=== PATIENT | male | born 1935 | race Caucasian/White ===

== ENCOUNTER → 2017-01-15 | Outpatient (CLI) | payer MEDICARE, MEDICAID ==
[~2017-01-15] MED LIST: /ESOM40CA PO; /WARF25TA PO; /WARF5TA PO; ASPI1TAB PO; ATEN25TA OR; BABY81CH OR; CALCIUM/VITAMIN D PO; CANASA PR; CILO100T PO; CILOSTAZOL PO; COZA50TA18 PO; ENOX80SY SC; FISH1000 OR; FURO40TA2 PO; INSULIN PUMP SC; LEVO50TA2 PO; LYRI75CA PO; NOVOINJ12 SC; NOVOLOG SC; PRAV80TA PO; TEGR200T OR; TRAM50TA2 PO; TYLE325T5 PO; ULTR50TA PO; VITAMIN D PO
== END ==
LOC: M WUC 13:23
PROVIDERS: ATTEND Urology
DX: C61 Malignant neoplasm of prostate (principal)

== ENCOUNTER 2017-01-24 08:06 | Observation (INO) | payer MEDICARE, MEDICAID ==
[~2017-01-24] VITALS: Ht 180.3 cm; Wt 78.0 kg
--- NOTE | 2017-01-24 09:11 | REP ---
Clinical: Shortness of breath . Comparison: 08/07/2016 . Technique: PA and lateral. Findings: The mediastinum and cardiac silhouette are normal/ stable. Evidence for prior sternotomy and CABG. The lung davidson are clear and without acute consolidation, effusion, or pneumothorax. The skeletal structures are intact and normal. Impression: 1. No acute cardiopulmonary process. Signed by Jarett Mejía MD 01/24/2017 09:02 A
[2017-01-24 09:16] LABS: BASO % 0.4 % (0.0-1.0); EOS # 0.3 K/mm3 (0.0-0.50); EOS % 3.3 % (0.0-3.0); LARGE UNSTAINED CELL # 0.2 K/mm3 (0.0-0.4); LARGE UNSTAINED CELL % 2.9 % (0.0-4.0); LYMPH # 0.7 K/mm3 (1.5-4.5); LYMPH % 8.3 % (24.0-44.0); MEAN CORPUSCULAR HEMOGLOBIN 32.2 pg (27.0-33.0); MEAN CORPUSCULAR HGB CONC 33.3 g/dl (32.0-36.5); MEAN CORPUSCULAR VOLUME 96.6 fl (80.0-96.0); MONO # 0.7 K/mm3 (0.0-0.8); MONO % 8.2 % (0.0-5.0); NEUTROPHILS % 76.9 % (36.0-66.0); PLATELET COUNT, AUTOMATED 166 k/mm3 (150-450); RED CELL DISTRIBUTION WIDTH 12.6 % (11.5-14.5); WHITE BLOOD COUNT 7.8 K/mm3 (4.0-10.0)
[2017-01-24 09:38] LABS: ALBUMIN 2.9 GM/DL (3.2-5.2); ALBUMIN/GLOBULIN RATIO 0.78 (1.00-1.93); ALKALINE PHOSPHATASE 101 U/L (45-117); ALT/SGPT 17 U/L (12-78); ANION GAP 7 MEQ/L (8-16); AST/SGOT 13 U/L (15-37); BILIRUBIN,DIRECT 0.1 MG/DL (0.0-0.2); BILIRUBIN,TOTAL 0.5 MG/DL (0.2-1.0); BLOOD UREA NITROGEN 29 MG/DL (7-18); CARBON DIOXIDE LEVEL 31 MEQ/L (21-32); CHLORIDE LEVEL 95 MEQ/L (98-107); CREATININE FOR GFR 1.56 MG/DL (0.70-1.30); GLOMERULAR FILTRATION RATE 45.6 (>35); GLUCOSE, FASTING 223 MG/DL (83-110); SODIUM LEVEL 133 MEQ/L (136-145); TOTAL PROTEIN 6.6 GM/DL (6.4-8.2)
[2017-01-24] MEDS ORDERED: ISOVUE-370 76% 100ML VIAL (Q9967) As Ordered ONE (09:54)
--- NOTE | 2017-01-24 10:27 | REP ---
Clinical: Acute abdominal pain. Technique: Axial contrast enhanced images from the lung bases to the pubic symphysis using 100 ml Isovue 370 intravenous contrast material with coronal and sagittal re-formations. Comparison: 01/12/2012. Findings: Lung bases demonstrate chronic interstitial changes and mild bronchiectasis. Visualized heart and pericardium normal. Liver demonstrates stable 2 cm hypodensity at the dome. Spleen, pancreas, gallbladder, bilateral adrenal glands and kidneys are normal. The enteric system demonstrates moderate fecal stasis and predominately sigmoid diverticulosis without obstruction or acute inflammatory process. Normal terminal ileum and appendix are identified in the right lower quadrant. Pelvis demonstrates normal bladder and age appropriate prostate/seminal vesicles. Small fat containing periumbilical hernia noted. Atherosclerotic changes to the vasculature noted without aneurysm. No ascites. No free air. No adenopathy. Musculoskeletal structures demonstrate degenerative changes. Impression: Chronic stable changes. No acute abdominopelvic pathology noted. Signed by Jarett Mejía MD 01/24/2017 10:19 A
[2017-01-24] MEDS ORDERED: ACETAMINOPHEN TAB 650MG DOSE (2X325MG) PO PRN (11:15)
[2017-01-24] MEDS ORDERED: LOSA25TA8 PO (12:08)
[2017-01-24] MEDS ORDERED: TRAM50TA2 PO (12:08)
[2017-01-24] MEDS ORDERED: LEVO50TA5 PO (12:08)
[2017-01-24] MEDS ORDERED: FURO40TA2 PO (12:08)
[2017-01-24] MEDS ORDERED: ASPI325T28 PO (12:08)
[2017-01-24] MEDS ORDERED: PRAV80TA2 PO (12:08)
[2017-01-24] MEDS ORDERED: CARB20TAXR PO (12:08)
[2017-01-24] MEDS ORDERED: CALC600T10 PO (12:08)
[2017-01-24] MEDS ORDERED: NITR4TASL SL (12:08)
[2017-01-24] MEDS ORDERED: INSUH10VL SC (12:08)
[2017-01-24] MEDS ORDERED: VITA-121 PO (12:08)
[2017-01-24] MEDS ORDERED: SUCR1TAB56 PO (12:08)
[2017-01-24] MEDS ORDERED: CILO100T PO (12:08)
[2017-01-24] MEDS ORDERED: NEXI40CA PO (12:08)
--- NOTE | 2017-01-24 12:22 | ECGEPIP ---
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
--- NOTE | 2017-01-24 12:34 | EDDOCDS ---
Physician Documentation [facility] Name: Matti Dangelo Age: 81 yrs Sex: Male : 1935 Arrival Date: 01/24/2017 Time: 08:06 Bed 10 Private MD: Matt Patel MD Disposition: 01/24/17 10:59 Hospitalization ordered by David Moon for Inpatient Admission. Preliminary diagnosis are Hypotension, Dehydration. - Bed requested for 4 [place]. - Status is Inpatient Admission. jjr - Condition is Stable. - Problem is new. - Symptoms are unchanged. Historical: - Allergies: no known allergies; - Home Meds: 1. aspirin 325 mg Oral tab 1 tab once daily 2. Calcium 600 600 mg (1,500 mg) oral tab daily 3. carbamazepine 200 mg Oral tab 1 tab daily 4. cilostazol 100 mg oral tab 1 tab daily 5. Lasix 40 mg Oral tab 1 tab once daily 6. Synthroid 50 mcg Oral tab 1 tab once daily 7. losartan 50 mg oral tab 1 tab once daily 8. pravastatin 80 mg oral tab 1 tab once daily 9. Insulin pump daily 10. Nexium 40 mg Oral cpDR 1 cap once daily 11. sucralfate 1 gram Oral tab 4 times per day 12. tramadol 50 mg Oral tab as needed 13. Nitrostat 0.4 mg SL subl 1 tab every 5 minutes 14. Vitamin D3 1,000 unit oral tab daily - PMHx: BPH; Diabetes - IDDM: controlled; Hypercholesterolemia; NV; neurpathy; - PSHx: CABG; Cataract Surgery- Bilateral; Thyroid Surgery; shoulder surgery, left; Bypass; left knee; - Social history: Smoking status: Patient states former smoker of tobacco. No barriers to communication noted, The patient speaks fluent Argentine, Speaks appropriately for age. - : The pt / caregiver states he / she is not on anticoagulants. Home medication list is obtained from the patient. - Exposure Risk Screening:: None identified. Vital Signs: 01/24 08:21 BP 93 / 51; Pulse 84; Resp 16; Temp 96.9(O); Pulse Ox 99% on R/A; Weight 78.02 kg / 172 mlb1 lbs (R); Height 5 ft. 11 in. (180.34 cm) (R); Pain 0/10; 09:15 BP 105 / 56 RA Supine (auto/reg); Pulse 76; jjr 09:15 BP 104 / 57 RA Sitting (auto/reg); Pulse 78; jjr 09:16 BP 97 / 53 RA Standing (auto/reg); Pulse 87; jjr 09:27 BP 118 / 58 (auto/); jjr 09:27 Pulse 74 MON; Pulse Ox 91% ; jjr 09:42 BP 110 / 54 (auto/); jjr 09:42 Pulse 74 MON; Pulse Ox 95% ; jjr 09:57 BP 105 / 54 (auto/); jjr 09:57 Pulse 72 MON; Resp 18; Pulse Ox 96% on R/A; jjr 10:27 BP 108 / 56 (auto/); jjr 10:27 Pulse 74 MON; Pulse Ox 92% ; jjr 11:08 BP 126 / 69 (auto/); jjr 11:08 Pulse 74 MON; Pulse Ox 95% ; jjr 11:27 BP 112 / 63 (auto/); jjr 11:27 Pulse 76 MON; Pulse Ox 96% ; jjr 11:57 BP 150 / 73 (auto/); jjr 11:57 BP 150 / 73; Pulse 74 MON; Resp 18; Temp 98.5(TE); Pulse Ox 98% ; Pain 0/10; jjr 12:32 BP 109 / 55; Pulse 79; Resp 18; Temp 98(O); Pulse Ox 100% on R/A; Pain 0/10; jjr 08:21 Body Mass Index 23.99 (78.02 kg, 180.34 cm) mlb1 MDM: 08:38 Sql Dba/Pulse Ox/q 30 min VS ordered. br1 08:38 IV Saline Lock ordered. br1 08:38 Rhythm Strip to chart ordered. br1 08:38 Undress patient appropriately for examination ordered. br1 08:38 NS 0.9% 500 ml IV at bolus once ordered. br1 08:39 Basic Metabolic Profile Ordered. EDMS 08:39 CBC with Diff Ordered. EDMS 08:39 Cardiac Injury Profile Ordered. EDMS 08:39 Troponin Ordered. EDMS 08:39 Orthostatic VS ordered. br1 08:39 Chest, 2 View (pa\E\lat) Ordered. EDMS 08:39 ECG WITH READING ER PHYS+CARDIAG ordered. EDMS 08:44 LIPASE Ordered. EDMS 08:44 LIVER PROFILE Ordered. EDMS 08:44 CARBAMAZEPINE (TEGRETOL) LEVEL Ordered. EDMS 09:32 CBC with Diff Reviewed. br1 09:32 Chest, 2 View (pa\E\lat) Reviewed. br1 09:37 Financial registration complete. mm15 09:39 [facility] [place] was scanned into yoone and attached to record. mm15 09:45 Basic Metabolic Profile Reviewed. br1 09:45 LIPASE Reviewed. br1 09:45 LIVER PROFILE Reviewed. br1 09:45 Cardiac Injury Profile Reviewed. br1 09:45 Troponin Reviewed. br1 09:45 CARBAMAZEPINE (TEGRETOL) LEVEL Reviewed. br1 09:47 CT ABD & PELVIS: IV Contrast Only Ordered. EDMS 10:58 NS 0.9% 1000 ml IV at 150 mL/hr continuous ordered. br1 10:58 BED REQUEST+ADM ordered. EDMS 11:27 CONSISTENT CARBOHYDRATES ordered. EDMS 11:27 NO ADDED SALT DIET ordered. EDMS 11:29 PHYSICAL THERAPY EVAL & TREAT ordered. EDMS 11:29 Admission / Observation Status ordered. EDMS Administered Medications: 09:22 Drug: NS 0.9% 500 ml [sodium chloride 0.9 % intravenous solution] Route: IV; Rate: jjr bolus; Site: left antecubital; 10:00 Follow up: IV Status: Completed infusion; IV Intake: 500ml jjr 11:15 Drug: NS 0.9% 1000 ml [sodium chloride 0.9 % intravenous solution] {Note: rate change jjr per admitting provider.} Route: IV; Rate: 75 mL/hr; Site: left antecubital; Signatures: Dispatcher [employer] EDMS Janeth Solorzano, Hospital Personnel Director Unit deg Srinivasa Siu RN RN mlb1 Gold Quesada MD MD br1 Rebecca Bright RN RN jjr Bailey Bedolla mm15 The chart was reviewed and I authenticate all verbal orders and agree with the evaluation and treatment provided.Corrections: (The following items were deleted from the chart) 08:44 08:40 CARBAMAZEPINE (TEGRETOL) LEVEL+LAB ordered. EDMS EDMS 08:44 08:40 LIVER PROFILE+LAB ordered. EDMS EDMS 08:44 08:40 LIPASE+LAB ordered. EDMS EDMS Attachments: 09:39 [facility] [place] mm15 MTDD
--- NOTE | 2017-01-24 12:34 | EDDOCDS ---
Nurse's Notes [facility] Name: Matti Dangelo Age: 81 yrs Sex: Male : 1935 Arrival Date: 01/24/2017 Time: 08:06 Bed 10 Private MD: Matt Patel MD Diagnosis: Hypotension;Dehydration Presentation: 01/24 08:13 Presenting complaint: Patient states: Generalized weakness not eating with nausea mlb1 intermittent abdominal pain began a week ago. The last date and time the patient was known to be well was was at 08:14 on January 24, 2017. No acute neurological deficit is noted. Adult Sepsis Screening: The patient does not have new or worsening altered mentation. Patient's respiratory rate is less than 22. Systolic blood pressure is greater than 100. Patient has a qSOFA score of 0- Negative Sepsis Screen. Suicide/Homicide risk assessment- the patient denies having any suicidal and/or homicidal ideations and does not present with any other emotional, behavioral or mental health complaints. Status: Patient is not a director social service or dependent. Transition of care: patient was not received from another setting of care. 08:13 Acuity: JOSH Level 3 mlb1 08:13 Method Of Arrival: Walkin/Carried/Asstd mlb1 Triage Assessment: 08:21 The onset of the patients symptoms was more than three hours ago. General: Appears in mlb1 no apparent distress, Behavior is appropriate for age, cooperative. General: Reports feeling ill for > 3 days, fatigue for >3 days. Pain: Denies pain. Neurological: Level of Consciousness is awake, alert. GI: Reports intolerance of food. Historical: - Allergies: no known allergies; - Home Meds: 1. aspirin 325 mg Oral tab 1 tab once daily 2. Calcium 600 600 mg (1,500 mg) oral tab daily 3. carbamazepine 200 mg Oral tab 1 tab daily 4. cilostazol 100 mg oral tab 1 tab daily 5. Lasix 40 mg Oral tab 1 tab once daily 6. Synthroid 50 mcg Oral tab 1 tab once daily 7. losartan 50 mg oral tab 1 tab once daily 8. pravastatin 80 mg oral tab 1 tab once daily 9. Insulin pump daily 10. Nexium 40 mg Oral cpDR 1 cap once daily 11. sucralfate 1 gram Oral tab 4 times per day 12. tramadol 50 mg Oral tab as needed 13. Nitrostat 0.4 mg SL subl 1 tab every 5 minutes 14. Vitamin D3 1,000 unit oral tab daily - PMHx: BPH; Diabetes - IDDM: controlled; Hypercholesterolemia; SD; neurpathy; - PSHx: CABG; Cataract Surgery- Bilateral; Thyroid Surgery; shoulder surgery, left; Bypass; left knee; - Social history: Smoking status: Patient states former smoker of tobacco. No barriers to communication noted, The patient speaks fluent Korean, Speaks appropriately for age. - : The pt / caregiver states he / she is not on anticoagulants. Home medication list is obtained from the patient. - Exposure Risk Screening:: None identified. Screenin:17 Fall Risk. jjr 09:17 Screening information is obtained from the patient. Fall risk: At risk due to age, The jjr following interventions are performed due to a positive Fall Risk Screen: added to special handling. Assistance ADL's: requires no assistance with activities of daily living. Abuse/DV Screen: The patient / caregiver reports he/she is: not in a situation that causes fear, pain or injury. Nutritional screening: No deficits noted. home support is adequate. 10:46 Advance Directives: Currently, there is a health care proxy, Cha Dangelo . There jjr is no active DNR order. Assessment: 09:16 General: Appears in no apparent distress, well nourished, well groomed, Behavior is jjr appropriate for age. General: Reports fatigue for >3 days. Pain: Denies pain. Neurological: No deficits noted. Cardiovascular: Rhythm is sinus rhythm. Respiratory: Airway is patent Respiratory effort is even, unlabored, Respiratory pattern is regular. GI: Reports nausea, normal bowel habits, decreased appetite. Derm: Skin is pink, warm & dry. 10:24 General: Appears in no apparent distress, Behavior is appropriate for age. jjr Neurological: No deficits noted. Cardiovascular: Rhythm is sinus rhythm. Respiratory: Airway is patent Respiratory effort is even, unlabored, Respiratory pattern is regular. Derm: Skin is pink, warm & dry. 11:23 General: Appears in no apparent distress, Behavior is appropriate for age, provided jjr coffee and water per request, admitting provider to bedside. Cardiovascular: Rhythm is sinus rhythm. Respiratory: No deficits noted. Derm: No deficits noted. 12:33 General: Appears in no apparent distress, tolerated lunch tray. Pain: Denies pain. jjr Neurological: No deficits noted. Respiratory: No deficits noted. Derm: No deficits noted. Vital Signs: 08:21 BP 93 / 51; Pulse 84; Resp 16; Temp 96.9(O); Pulse Ox 99% on R/A; Weight 78.02 kg (R); mlb1 Height 5 ft. 11 in. (180.34 cm) (R); Pain 0/10; 09:15 BP 105 / 56 RA Supine (auto/reg); Pulse 76; jjr 09:15 BP 104 / 57 RA Sitting (auto/reg); Pulse 78; jjr 09:16 BP 97 / 53 RA Standing (auto/reg); Pulse 87; jjr 09:27 BP 118 / 58 (auto/); jjr 09:27 Pulse 74 MON; Pulse Ox 91% ; jjr 09:42 BP 110 / 54 (auto/); jjr 09:42 Pulse 74 MON; Pulse Ox 95% ; jjr 09:57 BP 105 / 54 (auto/); jjr 09:57 Pulse 72 MON; Resp 18; Pulse Ox 96% on R/A; jjr 10:27 BP 108 / 56 (auto/); jjr 10:27 Pulse 74 MON; Pulse Ox 92% ; jjr 11:08 BP 126 / 69 (auto/); jjr 11:08 Pulse 74 MON; Pulse Ox 95% ; jjr 11:27 BP 112 / 63 (auto/); jjr 11:27 Pulse 76 MON; Pulse Ox 96% ; jjr 11:57 BP 150 / 73 (auto/); jjr 11:57 BP 150 / 73; Pulse 74 MON; Resp 18; Temp 98.5(TE); Pulse Ox 98% ; Pain 0/10; jjr 12:32 BP 109 / 55; Pulse 79; Resp 18; Temp 98(O); Pulse Ox 100% on R/A; Pain 0/10; jjr 08:21 Body Mass Index 23.99 (78.02 kg, 180.34 cm) mlb1 ED Course: 08:07 Patient visited by [place] Reg. lg 08:07 Patient moved to Waiting lg 08:08 Mtat Patel is Private Physician. lg 08:13 Patient visited by Srinivasa Siu, RN. mlb1 08:15 Triage Initiated mlb1 08:22 Patient visited by Srinivasa Siu, ROHINI. mlb1 08:22 Patient moved to 10 mlb1 08:28 Hamilton Quesada MD is Attending Physician. br1 08:37 Patient visited by Hamilton Quesada MD. br1 08:48 Patient visited by Matt Koenig PCA. jrd 08:48 EKG done. (by ED staff). Reviewed by Hamilton Quesada MD. jrd 09:16 The patient / caregiver is instructed regarding the plan of care and ED course. Cardiac jjr monitor on. Pulse ox on. NIBP on. 09:16 Inserted saline lock: 20 gauge in left antecubital area and blood collected. Labs jjr drawn. (by ED staff). Sent per order to lab. 09:17 Patient visited by Rebecca Bright RN. jjr 09:20 Chest, 2 View (pa\E\lat) Returned. EDMS 09:39 [facility] Payment Agreement was scanned into [email or web address] and attached to record. mm15 10:25 Patient visited by Rebecca Bright RN. jjr 10:33 CT ABD & PELVIS: IV Contrast Only Returned. EDMS 10:59 David Moon MD is Hospitalizing Provider. br1 11:24 Patient visited by Rebecca Bright RN. jjr 12:25 EKG-ADULT Returned. EDMS 12:33 No procedures done that require assistance. jjr Administered Medications: 09:22 Drug: NS 0.9% 500 ml [sodium chloride 0.9 % intravenous solution] Route: IV; Rate: jjr bolus; Site: left antecubital; 10:00 Follow up: IV Status: Completed infusion; IV Intake: 500ml jjr 11:15 Drug: NS 0.9% 1000 ml [sodium chloride 0.9 % intravenous solution] {Note: rate change jjr per admitting provider.} Route: IV; Rate: 75 mL/hr; Site: left antecubital; Intake: 10:00 IV: 500.00ml; Total: 500.00ml. jjr Order Results: Lab Order: Basic Metabolic Profile; SPEC'M 01/24/17 09:09 Test: GLUCOSE, FASTING; Value: 223; Range: 83-110; Abnormal: Above high normal; Units: MG/DL; Status: F Test: BLOOD UREA NITROGEN; Value: 29; Range: 7-18; Abnormal: Above high normal; Units: MG/DL; Status: F Test: CREATININE FOR GFR; Value: 1.56; Range: 0.70-1.30; Abnormal: Above high normal; Units: MG/DL; Status: F Test: GLOMERULAR FILTRATION RATE; Value: 45.6; Range: >35; Status: F Test: SODIUM LEVEL; Value: 133; Range: 136-145; Abnormal: Below low normal; Units: MEQ/L; Status: F Test: POTASSIUM SERUM; Value: 4.0; Range: 3.5-5.1; Units: MEQ/L; Status: F Test: CHLORIDE LEVEL; Value: 95; Range: 98-107; Abnormal: Below low normal; Units: MEQ/L; Status: F Test: CARBON DIOXIDE LEVEL; Value: 31; Range: 21-32; Units: MEQ/L; Status: F Test: ANION GAP; Value: 7; Range: 8-16; Abnormal: Below low normal; Units: MEQ/L; Status: F Test: CALCIUM LEVEL; Value: 8.0; Range: 8.8-10.2; Abnormal: Below low normal; Units: MG/DL; Status: F Test Note: ; Units are mL/min/1.73 m2 Chronic Kidney Disease Staging per NKF: Stage I & II GFR >=60 Normal to Mildly Decreased Stage III GFR 30-59 Moderately Decreased Stage IV GFR 15-29 Severely Decreased Stage V GFR <15 Very Little GFR Left ESRD GFR <15 on BUDGET ENGINEER Lab Order: CBC with Diff; 01/24/17 09:09 Test: WHITE BLOOD COUNT; Value: 7.8; Range: 4.0-10.0; Units: K/mm3; Status: F Test: RED BLOOD COUNT; Value: 3.60; Range: 4.30-6.10; Abnormal: Below low normal; Units: M/mm3; Status: F Test: HEMOGLOBIN; Value: 11.6; Range: 14.0-18.0; Abnormal: Below low normal; Units: g/dl; Status: F Test: HEMATOCRIT; Value: 34.7; Range: 42.0-52.0; Abnormal: Below low normal; Units: %; Status: F Test: MEAN CORPUSCULAR VOLUME; Value: 96.6; Range: 80.0-96.0; Abnormal: Above high normal; Units: fl; Status: F Test: MEAN CORPUSCULAR HEMOGLOBIN; Value: 32.2; Range: 27.0-33.0; Units: pg; Status: F Test: MEAN CORPUSCULAR HGB CONC; Value: 33.3; Range: 32.0-36.5; Units: g/dl; Status: F Test: RED CELL DISTRIBUTION WIDTH; Value: 12.6; Range: 11.5-14.5; Units: %; Status: F Test: PLATELET COUNT, AUTOMATED; Value: 166; Range: 150-450; Units: k/mm3; Status: F Test: NEUTROPHILS %; Value: 76.9; Range: 36.0-66.0; Abnormal: Above high normal; Units: %; Status: F Test: LYMPH %; Value: 8.3; Range: 24.0-44.0; Abnormal: Below low normal; Units: %; Status: F Test: MONO %; Value: 8.2; Range: 0.0-5.0; Abnormal: Above high normal; Units: %; Status: F Test: EOS %; Value: 3.3; Range: 0.0-3.0; Abnormal: Above high normal; Units: %; Status: F Test: BASO %; Value: 0.4; Range: 0.0-1.0; Units: %; Status: F Test: LARGE UNSTAINED CELL %; Value: 2.9; Range: 0.0-4.0; Units: %; Status: F Test: NEUTROPHILS #; Value: 6.0; Range: 1.8-7.7; Units: K/mm3; Status: F Test: LYMPH #; Value: 0.7; Range: 1.5-4.5; Abnormal: Below low normal; Units: K/mm3; Status: F Test: MONO #; Value: 0.7; Range: 0.0-0.8; Units: K/mm3; Status: F Test: EOS #; Value: 0.3; Range: 0.0-0.50; Units: K/mm3; Status: F Test: BASO #; Value: 0.0; Range: 0.0-0.2; Units: K/mm3; Status: F Test: LARGE UNSTAINED CELL #; Value: 0.2; Range: 0.0-0.4; Units: K/mm3; Status: F Lab Order: Cardiac Injury Profile; [facility] 01/24/17 09:09 Test: CPK CREATINE PHOSPHOKINASE; Value: 82; Range: 39-308; Units: U/L; Status: F Test: CK-MB VALUE MASS; Value: 1.0; Range: 0.0-3.6; Units: NG/ML; Status: F Test: MB/CK RELATIVE INDEX; Value: 1.21; Range: < OR =4; Status: F Test Note: ; DIAGNOSIS CRITERIA MMB ng/ml Relative Index (RI) NON-AMI < or = 5 N/A DING ZONE > 5 < or = 4 AMI > 5 > 4 Lab Order: Troponin; 01/24/17 09:09 Test: TROPONIN I; Value: < 0.02; Range: < 0.10; Units: NG/ML; Status: F Test Note: ; Troponin I Reference Interval for Siemens orat.io LOCI: 99th Percentile= 0.00-0.045 ng/ml Risk Stratification: <= 0.10 ng/ml Decreased Risk for Adverse Clinical Events. 0.10-1.50 ng/ml Increased Risk for Adverse Clinical Events. Evaluation of additional criterion and/or repeat testing in 2-6 hours is suggested to rule out myocardial damage. >= 1.50 ng/ml Indicative of Myocardial Injury. Lab Order: LIPASE; [facility]01/24/17 09:09 Test: LIPASE; Value: 67; Range: 73-393; Abnormal: Below low normal; Units: U/L; Status: F Lab Order: LIVER PROFILE; [facility]01/24/17 09:09 Test: AST/SGOT; Value: 13; Range: 15-37; Abnormal: Below low normal; Units: U/L; Status: F Test: ALT/SGPT; Value: 17; Range: 12-78; Units: U/L; Status: F Test: ALKALINE PHOSPHATASE; Value: 101; Range: 45-117; Units: U/L; Status: F Test: BILIRUBIN,TOTAL; Value: 0.5; Range: 0.2-1.0; Units: MG/DL; Status: F Test: BILIRUBIN,DIRECT; Value: 0.1; Range: 0.0-0.2; Units: MG/DL; Status: F Test: TOTAL PROTEIN; Value: 6.6; Range: 6.4-8.2; Units: GM/DL; Status: F Test: ALBUMIN; Value: 2.9; Range: 3.2-5.2; Abnormal: Below low normal; Units: GM/DL; Status: F Test: ALBUMIN/GLOBULIN RATIO; Value: 0.78; Range: 1.00-1.93; Abnormal: Below low normal; Status: F Lab Order: CARBAMAZEPINE (TEGRETOL) LEVEL; SPEC'M 01/24/17 09:09 Test: CARBAMAZEPINE (TEGRETOL) LEVEL; Value: 6.0; Range: 4.0-10.0; Units: UG/ML; Status: F Radiology Order: Chest, 2 View (pa\E\lat) Test: Chest, 2 View (pa\E\lat) REASON FOR EXAMINATION: Shortness of Breath; Clinical: Shortness of breath .; ; Comparison: 08/07/2016 .; ; Technique: PA and lateral.; ; Findings:; The mediastinum and cardiac silhouette are normal/ stable. Evidence for prior; sternotomy and CABG. The lung davidson are clear and without acute consolidation,; effusion, or pneumothorax. The skeletal structures are intact and normal.; ; Impression:; 1. 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: samuel; : 1935 Requested By: HAMILTON Gonzalez; Order Number: [id number] Kimberlee MD: Gil Tyler; Measurements; Intervals [place]; Rate: 79 P: 20; NV: 201 QRS: -38; QRSD: 75 T: 82; QT: 362; QTc: 417; Interpretive Statements; SINUS RHYTHM WITH SINUS ARRHYTHMIA; LAE; LEFT AXIS DEVIATION; PRWP; MODERATE T-WAVE ABNORMALITY, CONSIDER ANTERIOR ISCHEMIA; ; Electronically Signed On 01-24-2017 12:22:16 EST by Gil Tyler; Radiology Order: CT ABD & PELVIS: IV Contrast Only Test: CT ABD & PELVIS: IV Contrast Only REASON FOR EXAMINATION: Abdomen Pain; Clinical: Acute abdominal pain.; ; Technique: Axial contrast enhanced images from the lung bases to the pubic; symphysis using 100 ml Isovue 370 intravenous contrast material with coronal and; sagittal re-formations.; ; Comparison: 01/12/2012.; ; Findings:; Lung bases demonstrate chronic interstitial changes and mild bronchiectasis.; Visualized heart and pericardium normal.; ; Liver demonstrates stable 2 cm hypodensity at the dome. Spleen, pancreas,; gallbladder, bilateral adrenal glands and kidneys are normal. The enteric system; demonstrates moderate fecal stasis and predominately sigmoid diverticulosis; without obstruction or acute inflammatory process. Normal terminal ileum and; appendix are identified in the right lower quadrant. Pelvis demonstrates normal; bladder and age appropriate prostate/seminal vesicles. Small fat containing; periumbilical hernia noted. Atherosclerotic changes to the vasculature noted; without aneurysm. No ascites. No free air. No adenopathy. Musculoskeletal; structures demonstrate degenerative changes.; ; Impression:; Chronic stable changes.; No acute abdominopelvic pathology noted.; ; ; Signed by; Jarett Mejía MD 01/24/2017 10:19 A; Outcome: 10:59 Decision to Hospitalize by Provider. br1 12:33 Discharge Assessment: patient administered narcotics - no. The following High Risk jjr Discharge criteria are identified: None. Admitted to Med/Surg accompanied by tech, via wheelchair, with chart. Condition: stable. CT Study completed. Property :Personal belongings accompany Pt. 12:34 Patient left the ED. jjr Signatures: Dispatcher [employer] EDNew Jules Reg Reg lg Barney, Michael B RN RN mlb1 Hamilton Quesada MD MD br1 Rebecca Bright RN RN jjr Bailey Bedolla mmMatt Lance, STOKER MECHANIC STOKER MECHANIC jrd Corrections: (The following items were deleted from the chart) 11:15 11:15 NS 0.9% 1000 ml IV at 75 mL/hr in left antecubital j j MTDD
[2017-01-24] MEDS: SUCRALFATE 1 GM TAB PO SCH ×3 (13:02→19:54)
[2017-01-24] MEDS: NS 1,000 ML IV SCH ×2 (13:03→22:03)
[2017-01-24 13:05] VITALS: BP 131/66
--- NOTE | 2017-01-24 15:12 | HPE ---
DATE OF ADMISSION: 01/24/2017 HISTORY: This is an 81-year-old male patient who has not been feeling well for the last week. He is complaining of generalized weakness, nausea with intermittent abdominal pain. The abdominal pain is now resolved. He presented to [facility] Emergency Room this morning at his 's insistence. He has not been eating well. He has been drinking some, although not enough to maintain his hydration status. He has been continuing to take all of his medications routinely at home. He does have an insulin pump that is managed by Dr. Stein and reports that his sugars have been running slightly higher in the last week as well, although he has not been eating well. PAST MEDICAL HISTORY: 1. Type 2 diabetes. 2. 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 3. Diabetic neuropathy. 4. Hyperlipidemia. 5. Prostate cancer. 6. Status post radiation. 7. Benign prostatic hypertrophy (BPH). 8. Vitamin D deficiency. 9. Osteopenia. 10. Hypothyroidism. 11. Peripheral arterial disease. 12. Chronic kidney disease stage III. 13. Chronic systolic heart failure. 14. 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 MEDICATIONS: Include: - tramadol 50 mg every 6 hours as needed for pain - Carafate 1 gram twice a day - NovoLog insulin pump - vitamin D 1000 units daily - losartan 25 mg daily - levothyroxine 50 mcg by mouth daily - aspirin 325 mg daily - Nexium 40 mg daily - Lasix 40 mg daily - Pravastatin 80 mg daily - calcium 600 mg daily - cilostazol 100 mg once daily - Tegretol XR 200 mg daily SURGERIES: 1. CABG in 1993. 2. Partial thyroidectomy in 2001. 3. Rotator cuff repair in 2004. 4. Cataract repair. 5. Left total knee in 2012. SOCIAL HISTORY: The patient is a former smoker, it has been more than 10 years. He does not drink alcohol. He does not use recreational drugs. Drinks a couple of cups of coffee daily. No concentrated sweets, no added salt diet. Lives at home with his . He has six children who are all grown. REVIEW OF SYSTEMS: The patient denies any lightheadedness, dizziness. He feels unsteady on his feet, although this is not particularly worsen than his baseline, which he feels is unsteady secondary to his diabetic neuropathy. He denies any headaches, mouth sores or lesions. He does have nausea, although his abdominal pain is resolved. He has not vomited. He denies any diarrhea, blood in his stool or black/tarry stools. He denies any swelling in his legs. He denies chest pain, palpitations. PHYSICAL EXAMINATION: VITAL SIGNS: Blood pressure 108/56, pulse is 74, respirations 18, temperature 96.9, pulse oximetry is 99% on room air. Weight is 78 kg. He is 5 feet 11 inches. GENERAL: This is an elderly male who appears his stated age. He is pleasant and cooperative, lying on the gurney. His is at bedside. HEENT: Head is normocephalic, atraumatic. Pupils are equal, round and reactive to light and accommodation. Oropharynx is pink, dry. CARDIOVASCULAR: Regular rate and rhythm. LUNGS: Clear to auscultation bilaterally. ABDOMEN: Soft, nontender. There are positive bowel sounds. EXTREMITIES: Without clubbing, cyanosis or edema. INVESTIGATIONS: Reveal hemoglobin 11.6, hematocrit 34.7. Sodium is 133, chloride is 95, potassium is 4.0, carbon dioxide is 31, BUN is 29, creatinine is 1.56. GFR is 45. Glucose 223, carbamazepine is 6. CT of the abdomen and pelvis is without any acute findings. Chest x-ray is without active disease. ASSESSMENT AND PLAN: 1. Generalized weakness with mild dehydration and acute kidney injury. He had a slight bump in his creatinine, his pressures are low. He continued to take his at home Lasix and losartan. His last dosing was this morning. I am going to hold off on those and start some gentle IV hydration with normal saline at 75 mL an hour, potassium is 4 so we are not going replace that at this point. I will order physical therapy (PT). He will be admitted to medical surgical for observation. I am hopeful that he will be able to return home tomorrow. 2. Diabetes mellitus type 2. He is on an insulin pump. This is managed by Dr. Stein. I am hopeful that he will be able to continue to manage his insulin pump during his hospitalization. I think that he is capable of doing this. If his status changes, we will deactivate the insulin pump and initiate sliding scale insulin coverage per protocol. 3. Chronic systolic congestive heart failure (CHF). He is compensated at this point. Again, he is dry. We will hold his Lasix and monitor his fluid status. I am going to start him out on normal saline at 75 mL an hour and hopefully he will not have a problem with this. 4. Coronary artery disease/hypertension. He is on aspirin 325 mg daily. We will continue this. I am going to hold his losartan secondary to his pressures being low. 5. Gastrointestinal prophylaxis. We will place him on Protonix. 6. Deep vein thrombosis (DVT) prophylaxis. We will place him on Lovenox. DISPOSITION: Admit to medical/surgical for observation.
[2017-01-24 20:40] VITALS: BP 112/55
[2017-01-24] MEDS ORDERED: PRAVASTATIN 20 MG TAB PO SCH (21:00)
[2017-01-25 05:00] VITALS: BP 122/64
[2017-01-25] MEDS ORDERED: LEVOTHYROXINE 0.05 MG TAB (50 MCG) PO SCH (06:00)
[2017-01-25 06:04] LABS: CALCIUM LEVEL 7.5 MG/DL (8.8-10.2); CREATININE FOR GFR 1.38 MG/DL (0.70-1.30); GLOMERULAR FILTRATION RATE 52.5 (>35); POTASSIUM SERUM 3.5 MEQ/L (3.5-5.1)
[2017-01-25] MEDS: SUCRALFATE 1 GM TAB PO SCH ×2 (08:39→12:19)
[2017-01-25] MEDS ORDERED: carBAMazepine XR 200 MG TAB PO SCH (09:00)
[2017-01-25] MEDS ORDERED: ASPIRIN 325 MG TAB PO SCH (09:00)
[2017-01-25] MEDS ORDERED: CILOSTAZOL 100 MG TAB (PLETAL) PO SCH (09:00)
[2017-01-25] MEDS ORDERED: PANTOPRAZOLE 40MG TAB (PROTONIX) PO SCH (09:00)
--- NOTE | 2017-01-25 11:51 | IPNPDOC ---
Subjective Date Seen The patient was seen on 01/25/17. Subjective Chief Complaint/HPI Pt eager to go home this morning. He is feeling much better. His energy is better, he has been up and walking the halls. He spiked a temp last night, this improved with a dose of Tyl and removal of some of his blankets, nursing reports that he had several on. He has not had signs of fever this morning. General: Denies: Fatigue Constitutional: Denies: Chills ENT: Denies: Head Aches Skin: Denies: Rash Pulmonary: Denies: Cough, Dyspnea Cardiovascular: Denies: Chest Pain, Palpitations Gastrointestinal: Denies: Diarrhea, Nausea, Vomiting Neurological: Denies: Weakness Psych: Reports: Mood Normal Objective Physical Examination General Exam: Positive: Alert, No Acute Distress Eye Exam: Positive: Conjunctiva & lids normal ENT Exam: Positive: Mucous membr. moist/pink Chest Exam: Positive: Clear to auscultation, Normal air movement Heart Exam: Positive: Normal S1, Normal S2, Rate Normal Abdomen Exam: Positive: Normal bowel sounds, Soft, Negative: Tenderness Extremity Exam: Negative: Edema Assessment /Plan Assessment Family Medicine Attending Note: I saw and examined Mr. Dangelo, discussed with CHRYSTAL Gasca. Agree with their note as documented. Mr. Dangelo was doing well today, I saw and examined him. I see no reason he is not safe for discharge. 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 I did check a flu and UA this morning given his temp overnight, these are both Neg. CXR done yesterday Neg. CBC nl. Will plan to d/c home today. Plan/VTE VTE Prophylaxis Ordered?: Yes VS, I&O, 24H, Emilbonradha Vital Signs/I&O Vital Signs Date Time Temp Pulse Resp B/P Pulse Ox O2 Delivery O2 Flow Rate FiO2 01/25/17 05:00 96.9 65 18 122/64 97 Room Air I&O- Last 24 Hours up to 6 AM 01/25/17 05:59 Intake Total 930 ml Output Total 400 ml Balance 530 ml Laboratory Data 24H LABS Laboratory Tests 2 01/25/17 05:18: Anion Gap 8, Blood Urea Nitrogen 24H, Creatinine 1.38H, Sodium Level 138, Potassium Level 3.5, Chloride Level 101, Carbon Dioxide Level 29, Calcium Level 7.5L, Glomerular Filtration Rate 52.5 01/25/17 10:39: Urine Amorphous Sediment , Urine Appearance HAZY, Urine Color TALIB, Urine pH 5.0, Urine Specific [place] 1.033, Urine Protein 1+H, Urine Glucose (UA) NEGATIVE, Urine Ketones NEGATIVE, Urine Urobilinogen 0.2, Urine Bilirubin NEGATIVE, Urine Leukocyte Esterase NEGATIVE, Urine Bacteria (Auto) NEGATIVE, Urine Blood 1+H, Urine Calcium Carbonate Cryst(Auto) , Urine Calcium Oxalate Cryst (Auto) , Urine Calcium Phosphate [place] (Auto) , Urine Cellular Casts , Urine Cystine Crystals , Urine Granular Casts (Auto) , Urine Hyaline Casts (Auto ) 0, Urine Leucine Crystals , Urine Mucus (Auto) SMALL, Urine Nitrite NEGATIVE, Urine Oval Fat Bodies (Auto) , Urine RBC (Auto) 4H, Urine Renal Epithelial Cells , Urine Sperm (Auto) , Urine Squamous Epithelial Cells 0, Urine Transitional Epithelial Cells , Urine Trichomonas (Auto) , Urine Triple Phosphate Cryst (Auto) , Urine Tyrosine Crystals , Urine Uric Acid Crystals ( Auto) , Urine WBC (Auto) 1, Urine Waxy Casts (Auto) , Urine Yeast-Like Cells ( Auto) CBC/BMP Laboratory Tests 01/25/17 05:18 Calcium Level 7.5 L Microbiology Microbiology 01/25/17 Blood Culture, Received Pending 01/25/17 Influenza Virus Type A Antigen - Final, Complete 01/25/17 Influenza Virus Type B Antigen - Final, Complete 01/25/17 Urine Culture, Received Pending ROBERT JORDAN PA-C Jan 25, 2017 11:50 David Moon MD Jan 25, 2017 19:52
[2017-01-25] MEDS ORDERED: LASI20TA PO (11:53)
[2017-01-25] MEDS ORDERED: ENOXAPARIN 30 MG/0.3 ML SYR (J1650) SC SCH (18:00)
--- NOTE | 2017-01-26 13:35 | EDDOCDS ---
Nurse's Notes [facility] Name: Matti Dangelo Age: 81 yrs Sex: Male : 1935 Arrival Date: 01/24/2017 Time: 08:06 Bed 10 Private MD: Matt Patel MD Diagnosis: Hypotension;Dehydration Presentation: 01/24 08:13 Presenting complaint: Patient states: Generalized weakness not eating with nausea mlb1 intermittent abdominal pain began a week ago. The last date and time the patient was known to be well was was at 08:14 on January 24, 2017. No acute neurological deficit is noted. Adult Sepsis Screening: The patient does not have new or worsening altered mentation. Patient's respiratory rate is less than 22. Systolic blood pressure is greater than 100. Patient has a qSOFA score of 0- Negative Sepsis Screen. Suicide/Homicide risk assessment- the patient denies having any suicidal and/or homicidal ideations and does not present with any other emotional, behavioral or mental health complaints. Status: Patient is not a vp customer service or dependent. Transition of care: patient was not received from another setting of care. 08:13 Acuity: JOSH Level 3 mlb1 08:13 Method Of Arrival: Walkin/Carried/Asstd mlb1 Triage Assessment: 08:21 The onset of the patients symptoms was more than three hours ago. General: Appears in mlb1 no apparent distress, Behavior is appropriate for age, cooperative. General: Reports feeling ill for > 3 days, fatigue for >3 days. Pain: Denies pain. Neurological: Level of Consciousness is awake, alert. GI: Reports intolerance of food. Historical: - Allergies: no known allergies; - Home Meds: 1. aspirin 325 mg Oral tab 1 tab once daily 2. Calcium 600 600 mg (1,500 mg) oral tab daily 3. carbamazepine 200 mg Oral tab 1 tab daily 4. cilostazol 100 mg oral tab 1 tab daily 5. Lasix 40 mg Oral tab 1 tab once daily 6. Synthroid 50 mcg Oral tab 1 tab once daily 7. losartan 50 mg oral tab 1 tab once daily 8. pravastatin 80 mg oral tab 1 tab once daily 9. Insulin pump daily 10. Nexium 40 mg Oral cpDR 1 cap once daily 11. sucralfate 1 gram Oral tab 4 times per day 12. tramadol 50 mg Oral tab as needed 13. Nitrostat 0.4 mg SL subl 1 tab every 5 minutes 14. Vitamin D3 1,000 unit oral tab daily - PMHx: BPH; Diabetes - IDDM: controlled; Hypercholesterolemia; RI; neurpathy; - PSHx: CABG; Cataract Surgery- Bilateral; Thyroid Surgery; shoulder surgery, left; Bypass; left knee; - Social history: Smoking status: Patient states former smoker of tobacco. No barriers to communication noted, The patient speaks fluent Hungarian, Speaks appropriately for age. - : The pt / caregiver states he / she is not on anticoagulants. Home medication list is obtained from the patient. - Exposure Risk Screening:: None identified. Screenin:17 Fall Risk. jjr 09:17 Screening information is obtained from the patient. Fall risk: At risk due to age, The jjr following interventions are performed due to a positive Fall Risk Screen: added to special handling. Assistance ADL's: requires no assistance with activities of daily living. Abuse/DV Screen: The patient / caregiver reports he/she is: not in a situation that causes fear, pain or injury. Nutritional screening: No deficits noted. home support is adequate. 10:46 Advance Directives: Currently, there is a health care proxy, Cha Dangelo . There jjr is no active DNR order. Assessment: 09:16 General: Appears in no apparent distress, well nourished, well groomed, Behavior is jjr appropriate for age. General: Reports fatigue for >3 days. Pain: Denies pain. Neurological: No deficits noted. Cardiovascular: Rhythm is sinus rhythm. Respiratory: Airway is patent Respiratory effort is even, unlabored, Respiratory pattern is regular. GI: Reports nausea, normal bowel habits, decreased appetite. Derm: Skin is pink, warm & dry. 10:24 General: Appears in no apparent distress, Behavior is appropriate for age. jjr Neurological: No deficits noted. Cardiovascular: Rhythm is sinus rhythm. Respiratory: Airway is patent Respiratory effort is even, unlabored, Respiratory pattern is regular. Derm: Skin is pink, warm & dry. 11:23 General: Appears in no apparent distress, Behavior is appropriate for age, provided jjr coffee and water per request, admitting provider to bedside. Cardiovascular: Rhythm is sinus rhythm. Respiratory: No deficits noted. Derm: No deficits noted. 12:33 General: Appears in no apparent distress, tolerated lunch tray. Pain: Denies pain. jjr Neurological: No deficits noted. Respiratory: No deficits noted. Derm: No deficits noted. Vital Signs: 08:21 BP 93 / 51; Pulse 84; Resp 16; Temp 96.9(O); Pulse Ox 99% on R/A; Weight 78.02 kg (R); mlb1 Height 5 ft. 11 in. (180.34 cm) (R); Pain 0/10; 09:15 BP 105 / 56 RA Supine (auto/reg); Pulse 76; jjr 09:15 BP 104 / 57 RA Sitting (auto/reg); Pulse 78; jjr 09:16 BP 97 / 53 RA Standing (auto/reg); Pulse 87; jjr 09:27 BP 118 / 58 (auto/); jjr 09:27 Pulse 74 MON; Pulse Ox 91% ; jjr 09:42 BP 110 / 54 (auto/); jjr 09:42 Pulse 74 MON; Pulse Ox 95% ; jjr 09:57 BP 105 / 54 (auto/); jjr 09:57 Pulse 72 MON; Resp 18; Pulse Ox 96% on R/A; jjr 10:27 BP 108 / 56 (auto/); jjr 10:27 Pulse 74 MON; Pulse Ox 92% ; jjr 11:08 BP 126 / 69 (auto/); jjr 11:08 Pulse 74 MON; Pulse Ox 95% ; jjr 11:27 BP 112 / 63 (auto/); jjr 11:27 Pulse 76 MON; Pulse Ox 96% ; jjr 11:57 BP 150 / 73 (auto/); jjr 11:57 BP 150 / 73; Pulse 74 MON; Resp 18; Temp 98.5(TE); Pulse Ox 98% ; Pain 0/10; jjr 12:32 BP 109 / 55; Pulse 79; Resp 18; Temp 98(O); Pulse Ox 100% on R/A; Pain 0/10; jjr 08:21 Body Mass Index 23.99 (78.02 kg, 180.34 cm) mlb1 ED Course: 08:07 Patient visited by [place] Reg. lg 08:07 Patient moved to Waiting lg 08:08 Matt Patel is Private Physician. lg 08:13 Patient visited by Srinivasa Siu, RN. mlb1 08:15 Triage Initiated mlb1 08:22 Patient visited by Srinivasa Siu, ROHINI. mlb1 08:22 Patient moved to 10 mlb1 08:28 Hamilton Quesada MD is Attending Physician. br1 08:37 Patient visited by Hamilton Quesada MD. br1 08:48 Patient visited by Matt Koenig PCA. jrd 08:48 EKG done. (by ED staff). Reviewed by Hamilton Quesada MD. jrd 09:16 The patient / caregiver is instructed regarding the plan of care and ED course. Cardiac jjr monitor on. Pulse ox on. NIBP on. 09:16 Inserted saline lock: 20 gauge in left antecubital area and blood collected. Labs jjr drawn. (by ED staff). Sent per order to lab. 09:17 Patient visited by Rebecca Bright RN. jjr 09:20 Chest, 2 View (pa\E\lat) Returned. EDMS 09:39 [facility] [place] was scanned into [email or web address] and attached to record. mm15 10:25 Patient visited by Rebecca Bright RN. jjr 10:33 CT ABD & PELVIS: IV Contrast Only Returned. EDMS 10:59 David Moon MD is Hospitalizing Provider. br1 11:24 Patient visited by Rebecca Bright RN. jjr 12:25 EKG-ADULT Returned. EDMS 12:33 No procedures done that require assistance. jjr 16:00 T-Sheet-- Draft Copy was scanned into [email or web address] and attached to record. klr Administered Medications: 09:22 Drug: NS 0.9% 500 ml [sodium chloride 0.9 % intravenous solution] Route: IV; Rate: jjr bolus; Site: left antecubital; 10:00 Follow up: IV Status: Completed infusion; IV Intake: 500ml jjr 11:15 Drug: NS 0.9% 1000 ml [sodium chloride 0.9 % intravenous solution] {Note: rate change jjr per admitting provider.} Route: IV; Rate: 75 mL/hr; Site: left antecubital; Intake: 10:00 IV: 500.00ml; Total: 500.00ml. jjr Order Results: Lab Order: Basic Metabolic Profile; SPEC01/24/17 09:09 Test: GLUCOSE, FASTING; Value: 223; Range: 83-110; Abnormal: Above high normal; Units: MG/DL; Status: F Test: BLOOD UREA NITROGEN; Value: 29; Range: 7-18; Abnormal: Above high normal; Units: MG/DL; Status: F Test: CREATININE FOR GFR; Value: 1.56; Range: 0.70-1.30; Abnormal: Above high normal; Units: MG/DL; Status: F Test: GLOMERULAR FILTRATION RATE; Value: 45.6; Range: >35; Status: F Test: SODIUM LEVEL; Value: 133; Range: 136-145; Abnormal: Below low normal; Units: MEQ/L; Status: F Test: POTASSIUM SERUM; Value: 4.0; Range: 3.5-5.1; Units: MEQ/L; Status: F Test: CHLORIDE LEVEL; Value: 95; Range: 98-107; Abnormal: Below low normal; Units: MEQ/L; Status: F Test: CARBON DIOXIDE LEVEL; Value: 31; Range: 21-32; Units: MEQ/L; Status: F Test: ANION GAP; Value: 7; Range: 8-16; Abnormal: Below low normal; Units: MEQ/L; Status: F Test: CALCIUM LEVEL; Value: 8.0; Range: 8.8-10.2; Abnormal: Below low normal; Units: MG/DL; Status: F Test Note: ; Units are mL/min/1.73 m2 Chronic Kidney Disease Staging per NKF: Stage I & II GFR >=60 Normal to Mildly Decreased Stage III GFR 30-59 Moderately Decreased Stage IV GFR 15-29 Severely Decreased Stage V GFR <15 Very Little GFR Left ESRD GFR <15 on COMMUNICABLE DISEASE SPECIALIST Lab Order: CBC with Diff; SPEC01/24/17 09:09 Test: WHITE BLOOD COUNT; Value: 7.8; Range: 4.0-10.0; Units: K/mm3; Status: F Test: RED BLOOD COUNT; Value: 3.60; Range: 4.30-6.10; Abnormal: Below low normal; Units: M/mm3; Status: F Test: HEMOGLOBIN; Value: 11.6; Range: 14.0-18.0; Abnormal: Below low normal; Units: g/dl; Status: F Test: HEMATOCRIT; Value: 34.7; Range: 42.0-52.0; Abnormal: Below low normal; Units: %; Status: F Test: MEAN CORPUSCULAR VOLUME; Value: 96.6; Range: 80.0-96.0; Abnormal: Above high normal; Units: fl; Status: F Test: MEAN CORPUSCULAR HEMOGLOBIN; Value: 32.2; Range: 27.0-33.0; Units: pg; Status: F Test: MEAN CORPUSCULAR HGB CONC; Value: 33.3; Range: 32.0-36.5; Units: g/dl; Status: F Test: RED CELL DISTRIBUTION WIDTH; Value: 12.6; Range: 11.5-14.5; Units: %; Status: F Test: PLATELET COUNT, AUTOMATED; Value: 166; Range: 150-450; Units: k/mm3; Status: F Test: NEUTROPHILS %; Value: 76.9; Range: 36.0-66.0; Abnormal: Above high normal; Units: %; Status: F Test: LYMPH %; Value: 8.3; Range: 24.0-44.0; Abnormal: Below low normal; Units: %; Status: F Test: MONO %; Value: 8.2; Range: 0.0-5.0; Abnormal: Above high normal; Units: %; Status: F Test: EOS %; Value: 3.3; Range: 0.0-3.0; Abnormal: Above high normal; Units: %; Status: F Test: BASO %; Value: 0.4; Range: 0.0-1.0; Units: %; Status: F Test: LARGE UNSTAINED CELL %; Value: 2.9; Range: 0.0-4.0; Units: %; Status: F Test: NEUTROPHILS #; Value: 6.0; Range: 1.8-7.7; Units: K/mm3; Status: F Test: LYMPH #; Value: 0.7; Range: 1.5-4.5; Abnormal: Below low normal; Units: K/mm3; Status: F Test: MONO #; Value: 0.7; Range: 0.0-0.8; Units: K/mm3; Status: F Test: EOS #; Value: 0.3; Range: 0.0-0.50; Units: K/mm3; Status: F Test: BASO #; Value: 0.0; Range: 0.0-0.2; Units: K/mm3; Status: F Test: LARGE UNSTAINED CELL #; Value: 0.2; Range: 0.0-0.4; Units: K/mm3; Status: F Lab Order: Cardiac Injury Profile; [facility] 01/24/17 09:09 Test: CPK CREATINE PHOSPHOKINASE; Value: 82; Range: 39-308; Units: U/L; Status: F Test: CK-MB VALUE MASS; Value: 1.0; Range: 0.0-3.6; Units: NG/ML; Status: F Test: MB/CK RELATIVE INDEX; Value: 1.21; Range: < OR =4; Status: F Test Note: ; DIAGNOSIS CRITERIA MMB ng/ml Relative Index (RI) NON-AMI < or = 5 N/A DING ZONE > 5 < or = 4 AMI > 5 > 4 Lab Order: Troponin; [facility] 01/24/17 09:09 Test: TROPONIN I; Value: < 0.02; Range: < 0.10; Units: NG/ML; Status: F Test Note: ; Troponin I Reference Interval for [place] LOCI: 99th Percentile= 0.00-0.045 ng/ml Risk Stratification: <= 0.10 ng/ml Decreased Risk for Adverse Clinical Events. 0.10-1.50 ng/ml Increased Risk for Adverse Clinical Events. Evaluation of additional criterion and/or repeat testing in 2-6 hours is suggested to rule out myocardial damage. >= 1.50 ng/ml Indicative of Myocardial Injury. Lab Order: LIPASE; [facility]01/24/17 09:09 Test: LIPASE; Value: 67; Range: 73-393; Abnormal: Below low normal; Units: U/L; Status: F Lab Order: LIVER PROFILE; [facility] 01/24/17 09:09 Test: AST/SGOT; Value: 13; Range: 15-37; Abnormal: Below low normal; Units: U/L; Status: F Test: ALT/SGPT; Value: 17; Range: 12-78; Units: U/L; Status: F Test: ALKALINE PHOSPHATASE; Value: 101; Range: 45-117; Units: U/L; Status: F Test: BILIRUBIN,TOTAL; Value: 0.5; Range: 0.2-1.0; Units: MG/DL; Status: F Test: BILIRUBIN,DIRECT; Value: 0.1; Range: 0.0-0.2; Units: MG/DL; Status: F Test: TOTAL PROTEIN; Value: 6.6; Range: 6.4-8.2; Units: GM/DL; Status: F Test: ALBUMIN; Value: 2.9; Range: 3.2-5.2; Abnormal: Below low normal; Units: GM/DL; Status: F Test: ALBUMIN/GLOBULIN RATIO; Value: 0.78; Range: 1.00-1.93; Abnormal: Below low normal; Status: F Lab Order: CARBAMAZEPINE (TEGRETOL) LEVEL; SPEC'M 01/24/17 09:09 Test: CARBAMAZEPINE (TEGRETOL) LEVEL; Value: 6.0; Range: 4.0-10.0; Units: UG/ML; Status: F Radiology Order: Chest, 2 View (pa\E\lat) Test: Chest, 2 View (pa\E\lat) REASON FOR EXAMINATION: Shortness of Breath; Clinical: Shortness of breath .; ; Comparison: 08/07/2016 .; ; Technique: PA and lateral.; ; Findings:; The mediastinum and cardiac silhouette are normal/ stable. Evidence for prior; sternotomy and CABG. The lung davidson are clear and without acute consolidation,; effusion, or pneumothorax. The skeletal structures are intact and normal.; ; Impression:; 1. No acute cardiopulmonary process.; ; ; Signed by; Jarett Mejía MD 01/24/2017 09:02 A; Radiology Order: EKG-ADULT Test: EKG-ADULT REASON FOR EXAMINATION: Shortness of Breath; Stationary ECG Study; [facility] [place] - ED; ; Test Date: 2017-01-24; Pat Name: MATTI DANGELO Department:; Room: -; Gender: M Timber Management Technician: samuel; : 1935 Requested By: HAMILTON Gonzalez; Order Number: [id number] Reading MD: Gil Tyler; Measurements; Intervals [place]; Rate: 79 P: 20; UT: 201 QRS: -38; QRSD: 75 T: 82; QT: 362; QTc: 417; Interpretive Statements; SINUS RHYTHM WITH SINUS ARRHYTHMIA; LAE; LEFT AXIS DEVIATION; PRWP; MODERATE T-WAVE ABNORMALITY, CONSIDER ANTERIOR ISCHEMIA; ; Electronically Signed On 01-24-2017 12:22:16 EST by Gil Tyler; Radiology Order: CT ABD & PELVIS: IV Contrast Only Test: CT ABD & PELVIS: IV Contrast Only REASON FOR EXAMINATION: Abdomen Pain; Clinical: Acute abdominal pain.; ; Technique: Axial contrast enhanced images from the lung bases to the pubic; symphysis using 100 ml Isovue 370 intravenous contrast material with coronal and; sagittal re-formations.; ; Comparison: 01/12/2012.; ; Findings:; Lung bases demonstrate chronic interstitial changes and mild bronchiectasis.; Visualized heart and pericardium normal.; ; Liver demonstrates stable 2 cm hypodensity at the dome. Spleen, pancreas,; gallbladder, bilateral adrenal glands and kidneys are normal. The enteric system; demonstrates moderate fecal stasis and predominately sigmoid diverticulosis; without obstruction or acute inflammatory process. Normal terminal ileum and; appendix are identified in the right lower quadrant. Pelvis demonstrates normal; bladder and age appropriate prostate/seminal vesicles. Small fat containing; periumbilical hernia noted. Atherosclerotic changes to the vasculature noted; without aneurysm. No ascites. No free air. No adenopathy. Musculoskeletal; structures demonstrate degenerative changes.; ; Impression:; Chronic stable changes.; No acute abdominopelvic pathology noted.; ; ; Signed by; Jarett Mejía MD 01/24/2017 10:19 A; Outcome: 10:59 Decision to Hospitalize by Provider. br1 12:33 Discharge Assessment: patient administered narcotics - no. The following High Risk jjr Discharge criteria are identified: None. Admitted to Med/Surg accompanied by tech, via wheelchair, with chart. Condition: stable. CT Study completed. Property :Personal belongings accompany Pt. 12:34 Patient left the ED. jjr Signatures: Dispatcher [employer] EDOR [place], Henri Reg Srinivasa Patrick RN RN mlb1 Hamilton Quesada MD MD br1 Rebecca Bright RN RN jjBailey Dixon mm15 Matt Koenig, FUR LINER FUR LINER jrd Alondra Hannon Corrections: (The following items were deleted from the chart) 11:15 11:15 NS 0.9% 1000 ml IV at 75 mL/hr in left antecubital jayme delacruz Chart Complete MTDD
--- NOTE | 2017-01-26 13:35 | EDDOCDS ---
Physician Documentation [facility] Name: Matti Dangelo Age: 81 yrs Sex: Male : 1935 Arrival Date: 01/24/2017 Time: 08:06 Bed 10 Private MD: Matt Patel MD Disposition: 01/24/17 10:59 Hospitalization ordered by David Moon for Inpatient Admission. Preliminary diagnosis are Hypotension, Dehydration. - Bed requested for 4 Dupo. - Status is Inpatient Admission. jjr - Condition is Stable. - Problem is new. - Symptoms are unchanged. Historical: - Allergies: no known allergies; - Home Meds: 1. aspirin 325 mg Oral tab 1 tab once daily 2. Calcium 600 600 mg (1,500 mg) oral tab daily 3. carbamazepine 200 mg Oral tab 1 tab daily 4. cilostazol 100 mg oral tab 1 tab daily 5. Lasix 40 mg Oral tab 1 tab once daily 6. Synthroid 50 mcg Oral tab 1 tab once daily 7. losartan 50 mg oral tab 1 tab once daily 8. pravastatin 80 mg oral tab 1 tab once daily 9. Insulin pump daily 10. Nexium 40 mg Oral cpDR 1 cap once daily 11. sucralfate 1 gram Oral tab 4 times per day 12. tramadol 50 mg Oral tab as needed 13. Nitrostat 0.4 mg SL subl 1 tab every 5 minutes 14. Vitamin D3 1,000 unit oral tab daily - PMHx: BPH; Diabetes - IDDM: controlled; Hypercholesterolemia; NE; neurpathy; - PSHx: CABG; Cataract Surgery- Bilateral; Thyroid Surgery; shoulder surgery, left; Bypass; left knee; - Social history: Smoking status: Patient states former smoker of tobacco. No barriers to communication noted, The patient speaks fluent Senegalese, Speaks appropriately for age. - : The pt / caregiver states he / she is not on anticoagulants. Home medication list is obtained from the patient. - Exposure Risk Screening:: None identified. Vital Signs: 01/24 08:21 BP 93 / 51; Pulse 84; Resp 16; Temp 96.9(O); Pulse Ox 99% on R/A; Weight 78.02 kg / 172 mlb1 lbs (R); Height 5 ft. 11 in. (180.34 cm) (R); Pain 0/10; 09:15 BP 105 / 56 RA Supine (auto/reg); Pulse 76; jjr 09:15 BP 104 / 57 RA Sitting (auto/reg); Pulse 78; jjr 09:16 BP 97 / 53 RA Standing (auto/reg); Pulse 87; jjr 09:27 BP 118 / 58 (auto/); jjr 09:27 Pulse 74 MON; Pulse Ox 91% ; jjr 09:42 BP 110 / 54 (auto/); jjr 09:42 Pulse 74 MON; Pulse Ox 95% ; jjr 09:57 BP 105 / 54 (auto/); jjr 09:57 Pulse 72 MON; Resp 18; Pulse Ox 96% on R/A; jjr 10:27 BP 108 / 56 (auto/); jjr 10:27 Pulse 74 MON; Pulse Ox 92% ; jjr 11:08 BP 126 / 69 (auto/); jjr 11:08 Pulse 74 MON; Pulse Ox 95% ; jjr 11:27 BP 112 / 63 (auto/); jjr 11:27 Pulse 76 MON; Pulse Ox 96% ; jjr 11:57 BP 150 / 73 (auto/); jjr 11:57 BP 150 / 73; Pulse 74 MON; Resp 18; Temp 98.5(TE); Pulse Ox 98% ; Pain 0/10; jjr 12:32 BP 109 / 55; Pulse 79; Resp 18; Temp 98(O); Pulse Ox 100% on R/A; Pain 0/10; jjr 08:21 Body Mass Index 23.99 (78.02 kg, 180.34 cm) mlb1 MDM: 08:38 Computer Software Engineer/Pulse Ox/q 30 min VS ordered. br1 08:38 IV Saline Lock ordered. br1 08:38 Rhythm Strip to chart ordered. br1 08:38 Undress patient appropriately for examination ordered. br1 08:38 NS 0.9% 500 ml IV at bolus once ordered. br1 08:39 Basic Metabolic Profile Ordered. EDMS 08:39 CBC with Diff Ordered. EDMS 08:39 Cardiac Injury Profile Ordered. EDMS 08:39 Troponin Ordered. EDMS 08:39 Orthostatic VS ordered. br1 08:39 Chest, 2 View (pa\E\lat) Ordered. EDMS 08:39 ECG WITH READING ER PHYS+CARDIAG ordered. EDMS 08:44 LIPASE Ordered. EDMS 08:44 LIVER PROFILE Ordered. EDMS 08:44 CARBAMAZEPINE (TEGRETOL) LEVEL Ordered. EDMS 09:32 CBC with Diff Reviewed. br1 09:32 Chest, 2 View (pa\E\lat) Reviewed. br1 09:37 Financial registration complete. mm15 09:39 [facility] Payment Agreement was scanned into [employer] and attached to record. mm15 09:45 Basic Metabolic Profile Reviewed. br1 09:45 LIPASE Reviewed. br1 09:45 LIVER PROFILE Reviewed. br1 09:45 Cardiac Injury Profile Reviewed. br1 09:45 Troponin Reviewed. br1 09:45 CARBAMAZEPINE (TEGRETOL) LEVEL Reviewed. br1 09:47 CT ABD & PELVIS: IV Contrast Only Ordered. EDMS 10:58 NS 0.9% 1000 ml IV at 150 mL/hr continuous ordered. br1 10:58 BED REQUEST+ADM ordered. EDMS 11:27 CONSISTENT CARBOHYDRATES ordered. EDMS 11:27 NO ADDED SALT DIET ordered. EDMS 11:29 PHYSICAL THERAPY EVAL & TREAT ordered. EDMS 11:29 Admission / Observation Status ordered. EDMS 16:00 T-Sheet-- Draft Copy was scanned into [employer] and attached to record. klr Administered Medications: 09:22 Drug: NS 0.9% 500 ml [sodium chloride 0.9 % intravenous solution] Route: IV; Rate: jjr bolus; Site: left antecubital; 10:00 Follow up: IV Status: Completed infusion; IV Intake: 500ml jjr 11:15 Drug: NS 0.9% 1000 ml [sodium chloride 0.9 % intravenous solution] {Note: rate change jjr per admitting provider.} Route: IV; Rate: 75 mL/hr; Site: left antecubital; Signatures: Dispatcher [employer] EDMS Janeth Solorzano, Hydraulic Chair Assembler Unit deg Srinivasa Siu RN RN mlb1 Gold Quesada MD MD br1 Rebecca Bright RN RN jjr Bailey Bedolla mm15 Alondra Hannon The chart was reviewed and I authenticate all verbal orders and agree with the evaluation and treatment provided.Corrections: (The following items were deleted from the chart) 08:44 08:40 CARBAMAZEPINE (TEGRETOL) LEVEL+LAB ordered. EDMS EDMS 08: 08:40 LIVER PROFILE+LAB ordered. EDMS EDMS 08: 08:40 LIPASE+LAB ordered. EDMS EDMS Attachments: 09:39 [facility] Payment Agreement mm15 16:00 T-Sheet-- Draft Copy klr Chart Complete MTDD
--- NOTE | 2017-01-26 13:35 | EDDOCDS ---
Physician Documentation [facility] Name: Matti Dangelo Age: 81 yrs Sex: Male : 1935 Arrival Date: 01/24/2017 Time: 08:06 Bed 10 Private MD: Matt Patel MD Disposition: 01/24/17 10:59 Hospitalization ordered by David Moon for Inpatient Admission. Preliminary diagnosis are Hypotension, Dehydration. - Bed requested for 4 [place]. - Status is Inpatient Admission. jjr - Condition is Stable. - Problem is new. - Symptoms are unchanged. Historical: - Allergies: no known allergies; - Home Meds: 1. aspirin 325 mg Oral tab 1 tab once daily 2. Calcium 600 600 mg (1,500 mg) oral tab daily 3. carbamazepine 200 mg Oral tab 1 tab daily 4. cilostazol 100 mg oral tab 1 tab daily 5. Lasix 40 mg Oral tab 1 tab once daily 6. Synthroid 50 mcg Oral tab 1 tab once daily 7. losartan 50 mg oral tab 1 tab once daily 8. pravastatin 80 mg oral tab 1 tab once daily 9. Insulin pump daily 10. Nexium 40 mg Oral cpDR 1 cap once daily 11. sucralfate 1 gram Oral tab 4 times per day 12. tramadol 50 mg Oral tab as needed 13. Nitrostat 0.4 mg SL subl 1 tab every 5 minutes 14. Vitamin D3 1,000 unit oral tab daily - PMHx: BPH; Diabetes - IDDM: controlled; Hypercholesterolemia; NM; neurpathy; - PSHx: CABG; Cataract Surgery- Bilateral; Thyroid Surgery; shoulder surgery, left; Bypass; left knee; - Social history: Smoking status: Patient states former smoker of tobacco. No barriers to communication noted, The patient speaks fluent Turkish, Speaks appropriately for age. - : The pt / caregiver states he / she is not on anticoagulants. Home medication list is obtained from the patient. - Exposure Risk Screening:: None identified. Vital Signs: 01/24 08:21 BP 93 / 51; Pulse 84; Resp 16; Temp 96.9(O); Pulse Ox 99% on R/A; Weight 78.02 kg / 172 mlb1 lbs (R); Height 5 ft. 11 in. (180.34 cm) (R); Pain 0/10; 09:15 BP 105 / 56 RA Supine (auto/reg); Pulse 76; jjr 09:15 BP 104 / 57 RA Sitting (auto/reg); Pulse 78; jjr 09:16 BP 97 / 53 RA Standing (auto/reg); Pulse 87; jjr 09:27 BP 118 / 58 (auto/); jjr 09:27 Pulse 74 MON; Pulse Ox 91% ; jjr 09:42 BP 110 / 54 (auto/); jjr 09:42 Pulse 74 MON; Pulse Ox 95% ; jjr 09:57 BP 105 / 54 (auto/); jjr 09:57 Pulse 72 MON; Resp 18; Pulse Ox 96% on R/A; jjr 10:27 BP 108 / 56 (auto/); jjr 10:27 Pulse 74 MON; Pulse Ox 92% ; jjr 11:08 BP 126 / 69 (auto/); jjr 11:08 Pulse 74 MON; Pulse Ox 95% ; jjr 11:27 BP 112 / 63 (auto/); jjr 11:27 Pulse 76 MON; Pulse Ox 96% ; jjr 11:57 BP 150 / 73 (auto/); jjr 11:57 BP 150 / 73; Pulse 74 MON; Resp 18; Temp 98.5(TE); Pulse Ox 98% ; Pain 0/10; jjr 12:32 BP 109 / 55; Pulse 79; Resp 18; Temp 98(O); Pulse Ox 100% on R/A; Pain 0/10; jjr 08:21 Body Mass Index 23.99 (78.02 kg, 180.34 cm) mlb1 MDM: 08:38 Coffee Supervisor/Pulse Ox/q 30 min VS ordered. br1 08:38 IV Saline Lock ordered. br1 08:38 Rhythm Strip to chart ordered. br1 08:38 Undress patient appropriately for examination ordered. br1 08:38 NS 0.9% 500 ml IV at bolus once ordered. br1 08:39 Basic Metabolic Profile Ordered. EDMS 08:39 CBC with Diff Ordered. EDMS 08:39 Cardiac Injury Profile Ordered. EDMS 08:39 Troponin Ordered. EDMS 08:39 Orthostatic VS ordered. br1 08:39 Chest, 2 View (pa\E\lat) Ordered. EDMS 08:39 ECG WITH READING ER PHYS+CARDIAG ordered. EDMS 08:44 LIPASE Ordered. EDMS 08:44 LIVER PROFILE Ordered. EDMS 08:44 CARBAMAZEPINE (TEGRETOL) LEVEL Ordered. EDMS 09:32 CBC with Diff Reviewed. br1 09:32 Chest, 2 View (pa\E\lat) Reviewed. br1 09:37 Financial registration complete. mm15 09:39 [facility] Payment Agreement was scanned into [employer] and attached to record. mm15 09:45 Basic Metabolic Profile Reviewed. br1 09:45 LIPASE Reviewed. br1 09:45 LIVER PROFILE Reviewed. br1 09:45 Cardiac Injury Profile Reviewed. br1 09:45 Troponin Reviewed. br1 09:45 CARBAMAZEPINE (TEGRETOL) LEVEL Reviewed. br1 09:47 CT ABD & PELVIS: IV Contrast Only Ordered. EDMS 10:58 NS 0.9% 1000 ml IV at 150 mL/hr continuous ordered. br1 10:58 BED REQUEST+ADM ordered. EDMS 11:27 CONSISTENT CARBOHYDRATES ordered. EDMS 11:27 NO ADDED SALT DIET ordered. EDMS 11:29 PHYSICAL THERAPY EVAL & TREAT ordered. EDMS 11:29 Admission / Observation Status ordered. EDMS 16:00 T-Sheet-- Draft Copy was scanned into [employer] and attached to record. klr Administered Medications: 09:22 Drug: NS 0.9% 500 ml [sodium chloride 0.9 % intravenous solution] Route: IV; Rate: jjr bolus; Site: left antecubital; 10:00 Follow up: IV Status: Completed infusion; IV Intake: 500ml jjr 11:15 Drug: NS 0.9% 1000 ml [sodium chloride 0.9 % intravenous solution] {Note: rate change jjr per admitting provider.} Route: IV; Rate: 75 mL/hr; Site: left antecubital; Signatures: Dispatcher [employer] EDMS Janeth Solorzano, Cardiology Specialist Unit deg Srinivasa Siu RN RN mlb1 Gold Quesada MD MD br1 Rebecca Bright RN RN jjr Bailey Bedolla mm15 Alondra Hannon The chart was reviewed and I authenticate all verbal orders and agree with the evaluation and treatment provided.Corrections: (The following items were deleted from the chart) 08:44 08:40 CARBAMAZEPINE (TEGRETOL) LEVEL+LAB ordered. EDMS EDMS 08: 08:40 LIVER PROFILE+LAB ordered. EDMS EDMS 08: 08:40 LIPASE+LAB ordered. EDMS EDMS Attachments: 09:39 [facility] Payment Agreement mm15 16:00 T-Sheet-- Draft Copy klr Chart Complete MTDD
== END 2017-01-25 12:41 | disposition home or self-care (01) ==
LOC: M ED 08:06 → M ED INP 11:14 → M MSPAV 12:41
PROVIDERS: ADMIT Family Medicine; ATTEND Family Medicine
DX: E86.0 Dehydration (principal); I95.1 Orthostatic hypotension; R53.1 Weakness; E11.40 Type 2 diabetes mellitus with diabetic neuropathy, unspecified; Z96.41 Presence of insulin pump (external) (internal); Z79.4 Long term (current) use of insulin; I25.10 Atherosclerotic heart disease of native coronary artery without angina pectoris; Z95.1 Presence of aortocoronary bypass graft; I10 Essential (primary) hypertension; E78.4 Other hyperlipidemia; Z85.46 Personal history of malignant neoplasm of prostate; Z92.3 Personal history of irradiation; E55.9 Vitamin D deficiency, unspecified; N40.0 Benign prostatic hyperplasia without lower urinary tract symptoms; E03.9 Hypothyroidism, unspecified; N18.3 Chronic kidney disease, stage 3 (moderate); I73.9 Peripheral vascular disease, unspecified; I50.22 Chronic systolic (congestive) heart failure; Z79.899 Other long term (current) drug therapy; Z87.891 Personal history of nicotine dependence; Z79.82 Long term (current) use of aspirin
CPT/HCPCS: 36415; 71020; 74177; 80048; 80076; 80156; 81001; 82550; 82553; 83690; 84484; 85025; 87040; 87086; 87804; 93005; 93041; 96360; 97162; 99285; G0378; Q9967

== ENCOUNTER → 2017-01-29 | Outpatient (REF) | payer MEDICARE, MEDICAID ==
[~2017-01-29] MED LIST changes: +ASPI325T28 PO; +CALC600T10 PO; +CARB20TAXR PO; +INSUH10VL SC; +LASI20TA PO; +LEVO50TA5 PO; +LOSA25TA8 PO; +NEXI40CA PO; +NITR4TASL SL; +PRAV80TA2 PO; +SUCR1TAB56 PO; +VITA-121 PO
== END ==
LOC: M SFHCPLAZ 11:38
PROVIDERS: ATTEND Nurse Practitioner Family
DX: N18.3 Chronic kidney disease, stage 3 (moderate) (principal); D63.1 Anemia in chronic kidney disease; E03.9 Hypothyroidism, unspecified

== ENCOUNTER → 2017-02-02 | Outpatient (CLI) | payer MEDICARE, MEDICAID ==
[2017-02-02 12:50] LABS: BASO % 0.5 % (0.0-1.0); EOS # 0.2 K/mm3 (0.0-0.50); EOS % 3.2 % (0.0-3.0); LARGE UNSTAINED CELL # 0.1 K/mm3 (0.0-0.4); LARGE UNSTAINED CELL % 1.4 % (0.0-4.0); LYMPH % 12.2 % (24.0-44.0); MEAN CORPUSCULAR HEMOGLOBIN 32.3 pg (27.0-33.0); MEAN CORPUSCULAR HGB CONC 31.5 g/dl (32.0-36.5); MEAN CORPUSCULAR VOLUME 102.8 fl (80.0-96.0); MONO # 0.7 K/mm3 (0.0-0.8); MONO % 9.1 % (0.0-5.0); NEUTROPHILS # 5.5 K/mm3 (1.8-7.7); NEUTROPHILS % 73.6 % (36.0-66.0); PLATELET COUNT, AUTOMATED 484 k/mm3 (150-450); RED CELL DISTRIBUTION WIDTH 12.9 % (11.5-14.5); WHITE BLOOD COUNT 7.5 K/mm3 (4.0-10.0)
[2017-02-02 13:14] LABS: ALBUMIN 2.8 GM/DL (3.2-5.2); ALBUMIN/GLOBULIN RATIO 0.78 (1.00-1.93); ALKALINE PHOSPHATASE 119 U/L (45-117); ALT/SGPT 22 U/L (12-78); ANION GAP 8 MEQ/L (8-16); AST/SGOT 17 U/L (15-37); BILIRUBIN,TOTAL 0.3 MG/DL (0.2-1.0); BLOOD UREA NITROGEN 19 MG/DL (7-18); CALCIUM LEVEL 8.2 MG/DL (8.8-10.2); CARBON DIOXIDE LEVEL 29 MEQ/L (21-32); CHLORIDE LEVEL 100 MEQ/L (98-107); CREATININE FOR GFR 1.21 MG/DL (0.70-1.30); FREE T4 1.05 NG/DL (0.76-1.46); GLOMERULAR FILTRATION RATE > 60.0 (>35); GLUCOSE, FASTING 271 MG/DL (83-110); PERCENT SATURATION 19.7 % (19.7-37.4); POTASSIUM SERUM 4.6 MEQ/L (3.5-5.1); SODIUM LEVEL 137 MEQ/L (136-145); TOTAL IRON BINDING CAPACITY 238 UG/DL (250-450); TOTAL PROTEIN 6.4 GM/DL (6.4-8.2)
[2017-02-02 20:50] LABS: FOLATE > 24.0 NG/ML; VITAMIN B12 LEVEL 641 PG/ML
== END ==
LOC: M WUC 10:09
PROVIDERS: ATTEND Nurse Practitioner Family
DX: N18.3 Chronic kidney disease, stage 3 (moderate) (principal); D63.1 Anemia in chronic kidney disease; E03.9 Hypothyroidism, unspecified

== ENCOUNTER 2017-04-30 13:59 | Emergency (ER) | payer MEDICARE, MEDICAID ==
[~2017-04-30] VITALS: Ht 180.3 cm; Wt 36.4 kg
[2017-04-30] MEDS ORDERED: FURO40TA2 PO (14:28)
[2017-04-30 15:14] LABS: MEAN CORPUSCULAR HEMOGLOBIN 33.7 pg (27.0-33.0); MEAN CORPUSCULAR HGB CONC 33.8 g/dl (32.0-36.5); MEAN CORPUSCULAR VOLUME 99.6 fl (80.0-96.0); RED CELL DISTRIBUTION WIDTH 13.9 % (11.5-14.5)
[2017-04-30] MEDS ORDERED: NS 500 ML IV SCH (15:15)
[2017-04-30] MEDS ORDERED: ONDANSETRON 4MG/2ML VIAL (J2405) IV ONE (15:15)
[2017-04-30 15:20] LABS: CALCIUM LEVEL 8.7 MG/DL (8.8-10.2); CREATININE FOR GFR 1.23 MG/DL (0.70-1.30); POTASSIUM SERUM 3.9 MEQ/L (3.5-5.1)
[2017-04-30 15:40] LABS: BANDS 5 % (< 11); EOSINOPHILS 1 % (0-5)
[2017-04-30] MEDS ORDERED: ZOFR4TAB3 PO (16:45)
[2017-04-30 17:29] VITALS: BP 133/69
== END 2017-04-30 17:38 | disposition home or self-care (01) ==
LOC: EDBD 13:59 → M ED 15:03
DX: A09 Infectious gastroenteritis and colitis, unspecified (principal); E11.9 Type 2 diabetes mellitus without complications; I11.0 Hypertensive heart disease with heart failure; I50.9 Heart failure, unspecified; E78.5 Hyperlipidemia, unspecified; I25.10 Atherosclerotic heart disease of native coronary artery without angina pectoris; E03.9 Hypothyroidism, unspecified; Z85.46 Personal history of malignant neoplasm of prostate; Z95.1 Presence of aortocoronary bypass graft; Z79.899 Other long term (current) drug therapy; Z79.82 Long term (current) use of aspirin; Z79.4 Long term (current) use of insulin; Z88.8 Allergy status to other drugs, medicaments and biological substances
CPT/HCPCS: 80048; 85007; 85027; 96361; 96374; 99283; J2405

== ENCOUNTER → 2017-06-19 | Outpatient (CLI) | payer MEDICARE, MEDICAID ==
[~2017-06-19] MED LIST changes: -CALC600T10 PO; +CALC600T31 PO; +CARB200T98 PO; -CARB20TAXR PO; +ZOFR4TAB3 PO
--- NOTE | 2017-06-19 16:10 | REP ---
Cervical spine eight views: Vertebral body heights and alignment are normal. There is advanced degenerative disc disease at C 05/06 and C6-7. The prevertebral soft tissues are normal. The facets are normally aligned. The odontoid view is unremarkable. There is foraminal encroachment from uncinate spurring on the left at multiple levels and on the right and C5-6 and C6-7. Impression: Advanced degenerative disc disease. Bilateral foraminal encroachment as described. Signed by Baldomero Valdez MD 06/19/2017 03:58 P
== END ==
LOC: M RAD 15:29
PROVIDERS: ATTEND Nurse Practitioner Family
DX: M50.322 Other cervical disc degeneration at C5-C6 level (principal); M50.823 Other cervical disc disorders at C6-C7 level
CPT/HCPCS: 72052; G0463

== ENCOUNTER → 2017-11-17 | Outpatient (CLI) | payer MEDICARE, MEDICAID ==
[2017-11-17 13:32] LABS: MEAN CORPUSCULAR HEMOGLOBIN 33.1 pg (27.0-33.0); MEAN CORPUSCULAR HGB CONC 33.8 g/dl (32.0-36.5); MEAN CORPUSCULAR VOLUME 97.9 fl (80.0-96.0); PLATELET COUNT, AUTOMATED 214 10^3/uL (150-450); WHITE BLOOD COUNT 6.5 10^3/uL (4.0-10.0)
[2017-11-17 13:36] LABS: ALBUMIN 3.6 GM/DL (3.2-5.2); ALKALINE PHOSPHATASE 118 U/L (45-117); ALT/SGPT 22 U/L (12-78); ANION GAP 8 MEQ/L (8-16); AST/SGOT 18 U/L (7-37); BILIRUBIN,TOTAL 0.3 MG/DL (0.2-1.0); BLOOD UREA NITROGEN 20 MG/DL (7-18); CALCIUM LEVEL 8.1 MG/DL (8.8-10.2); CARBON DIOXIDE LEVEL 29 MEQ/L (21-32); CHLORIDE LEVEL 104 MEQ/L (98-107); CHOLESTEROL LEVEL 183 MG/DL (<200); CREATININE FOR GFR 1.12 MG/DL (0.70-1.30); FREE T4 1.01 NG/DL (0.76-1.46); GLOMERULAR FILTRATION RATE > 60.0 (>35); GLUCOSE, FASTING 151 MG/DL (83-110); POTASSIUM SERUM 4.3 MEQ/L (3.5-5.1); SODIUM LEVEL 141 MEQ/L (136-145); TOTAL PROTEIN 6.6 GM/DL (6.4-8.2); TRIGLYCERIDES LEVEL 140 MG/DL (<150)
== END ==
LOC: M WUC 09:48
PROVIDERS: ATTEND Family Medicine
DX: I25.10 Atherosclerotic heart disease of native coronary artery without angina pectoris (principal); E03.9 Hypothyroidism, unspecified

== ENCOUNTER 2017-12-18 05:59 | Emergency (ER) | payer MEDICARE, MEDICAID ==
[2017-12-18] MEDS: ONDANSETRON 4MG/2ML VIAL (J2405) IV ×2 (06:15→06:54)
[2017-12-18 06:23] LABS: BASO % 0.1 % (0.0-1.0); EOS # 0.2 10^3/uL (0.0-0.50); EOS % 2.6 % (0.0-3.0); HEMATOCRIT 35.5 % (42.0-52.0); HEMOGLOBIN 12.2 g/dl (14.0-18.0); IMMATURE GRANULOCYTE % 0.3 % (0-0); LYMPH # 0.7 10^3/uL (1.5-4.5); LYMPH % 8.8 % (24.0-44.0); MEAN CORPUSCULAR HGB CONC 34.4 g/dl (32.0-36.5); MEAN CORPUSCULAR VOLUME 98.9 fl (80.0-96.0); MONO # 0.9 10^3/uL (0.0-0.8); NEUTROPHILS # 5.9 10^3/uL (1.8-7.7); NEUTROPHILS % 76.2 % (36.0-66.0); PLATELET COUNT, AUTOMATED 169 10^3/uL (150-450); RED BLOOD COUNT 3.59 10^6/uL (4.30-6.10); RED CELL DISTRIBUTION WIDTH 13.1 % (11.5-14.5); WHITE BLOOD COUNT 7.8 10^3/uL (4.0-10.0)
[2017-12-18 06:35] LABS: INR 1.02; PROTHROMBIN TIME 13.5 SECONDS (12.4-14.5)
[2017-12-18 06:36] LABS: PARTIAL THROMBOPLASTIN TIME 33.3 SECONDS (26.8-37.9)
[2017-12-18 06:52] LABS: ALBUMIN 3.2 GM/DL (3.2-5.2); ALBUMIN/GLOBULIN RATIO 0.94 (1.00-1.93); ALKALINE PHOSPHATASE 113 U/L (45-117); ALT/SGPT 21 U/L (12-78); ANION GAP 6 MEQ/L (8-16); AST/SGOT 18 U/L (7-37); BILIRUBIN,DIRECT 0.1 MG/DL (0.0-0.2); BILIRUBIN,TOTAL 0.5 MG/DL (0.2-1.0); BLOOD UREA NITROGEN 24 MG/DL (7-18); CALCIUM LEVEL 7.9 MG/DL (8.8-10.2); CARBON DIOXIDE LEVEL 27 MEQ/L (21-32); CHLORIDE LEVEL 106 MEQ/L (98-107); CREATININE FOR GFR 1.24 MG/DL (0.70-1.30); GLOMERULAR FILTRATION RATE 59.3 (>35); GLUCOSE, FASTING 167 MG/DL (83-110); LIPASE 56 U/L (73-393); SODIUM LEVEL 139 MEQ/L (136-145); TOTAL PROTEIN 6.6 GM/DL (6.4-8.2)
[2017-12-18 06:55] LABS: LACTIC ACID SEPSIS PROTOCOL 1.7 MMOL/L (0.4-2.0)
[2017-12-18] MEDS ORDERED: METAL LOCK LOOP XX (08:24)
[2017-12-18] MEDS: NS 500 ML IV ×2 (08:35→09:54)
[2017-12-18 09:07] LABS: BEDSIDE GLUCOSE 164 MG/DL (83-110)
[2017-12-18 09:25] LABS: BEDSIDE GLUCOSE 143 MG/DL (83-110)
== END 2017-12-18 11:19 | disposition home or self-care (01) ==
LOC: M ED 05:59
DX: A08.4 Viral intestinal infection, unspecified (principal); I44.0 Atrioventricular block, first degree; E11.9 Type 2 diabetes mellitus without complications; I25.2 Old myocardial infarction; Z87.891 Personal history of nicotine dependence
CPT/HCPCS: J2405

== ENCOUNTER → 2018-04-01 | Outpatient (REF) | payer MEDICARE, MEDICAID ==
[2018-04-01 12:31] LABS: ALBUMIN/GLOBULIN RATIO 1.21 (1.00-1.93); ALKALINE PHOSPHATASE 130 U/L (45-117); ALT/SGPT 26 U/L (12-78); ANION GAP 7 MEQ/L (8-16); AST/SGOT 19 U/L (7-37); BILIRUBIN,TOTAL 0.3 MG/DL (0.2-1.0); BLOOD UREA NITROGEN 38 MG/DL (7-18); CALCIUM LEVEL 8.6 MG/DL (8.8-10.2); CARBON DIOXIDE LEVEL 32 MEQ/L (21-32); CHLORIDE LEVEL 105 MEQ/L (98-107); CREATININE FOR GFR 1.47 MG/DL (0.70-1.30); FREE T4 0.97 NG/DL (0.76-1.46); GLOMERULAR FILTRATION RATE 48.7 (>35); GLUCOSE, FASTING 103 MG/DL (70-100); POTASSIUM SERUM 4.3 MEQ/L (3.5-5.1); SODIUM LEVEL 144 MEQ/L (136-145); TOTAL PROTEIN 7.3 GM/DL (6.4-8.2)
== END ==
LOC: M SFHCPLAZ 08:47
DX: I10 Essential (primary) hypertension (principal); E03.9 Hypothyroidism, unspecified
CPT/HCPCS: 84443

== ENCOUNTER → 2018-06-30 | Outpatient (CLI) | payer MEDICARE, MEDICAID | LOC: M WUC 11:39 | DX: M25.511 Pain in right shoulder (principal) | CPT/HCPCS: 73030 ==

== ENCOUNTER → 2018-08-05 | Outpatient (REF) | payer MEDICARE, MEDICAID ==
[2018-08-05 16:38] LABS: ALBUMIN 3.9 GM/DL (3.2-5.2); ALBUMIN/GLOBULIN RATIO 1.15 (1.00-1.93); ALKALINE PHOSPHATASE 123 U/L (45-117); ALT/SGPT 22 U/L (12-78); ANION GAP 8 MEQ/L (8-16); AST/SGOT 15 U/L (7-37); BILIRUBIN,TOTAL 0.3 MG/DL (0.2-1.0); BLOOD UREA NITROGEN 29 MG/DL (7-18); CALCIUM LEVEL 8.5 MG/DL (8.8-10.2); CARBON DIOXIDE LEVEL 32 MEQ/L (21-32); CHLORIDE LEVEL 102 MEQ/L (98-107); CREATININE FOR GFR 1.29 MG/DL (0.70-1.30); FREE T4 0.97 NG/DL (0.76-1.46); GLOMERULAR FILTRATION RATE 56.5 (>35); GLUCOSE, FASTING 199 MG/DL (70-100); POTASSIUM SERUM 4.2 MEQ/L (3.5-5.1); SODIUM LEVEL 142 MEQ/L (136-145); TOTAL PROTEIN 7.3 GM/DL (6.4-8.2)
== END ==
LOC: M SFHCPLAZ 14:22
DX: E10.40 Type 1 diabetes mellitus with diabetic neuropathy, unspecified (principal); E03.9 Hypothyroidism, unspecified
CPT/HCPCS: 84443

== ENCOUNTER → 2018-10-05 | Outpatient (CLI) | payer MEDICARE, MEDICAID | LOC: M RAD 07:38 | DX: S46.811A Strain of other muscles, fascia and tendons at shoulder and upper arm level, right arm, initial encounter (principal); X58.XXXA Exposure to other specified factors, initial encounter; Y92.9 Unspecified place or not applicable; M19.011 Primary osteoarthritis, right shoulder | CPT/HCPCS: 73221 ==

== ENCOUNTER → 2018-12-16 | Outpatient (CLI) | payer MEDICARE, MEDICAID ==
[~2018-12-16] MED LIST changes: +ASPI-222 PO; -ASPI325T28 PO; -LASI20TA PO; +LASI20TA3 PO; +LOSA25TA14 PO; -LOSA25TA8 PO; +LOSA50TA88 PO; +MULT1TAB10 PO; +ZOFR4TAB14 PO; -ZOFR4TAB3 PO
[2018-12-16 16:47] LABS: BILIRUBIN,TOTAL 0.4 MG/DL (0.2-1.0); CALCIUM LEVEL 8.7 MG/DL (8.8-10.2); CREATININE FOR GFR 1.34 MG/DL (0.70-1.30); GLOMERULAR FILTRATION RATE 54.1 (>35); POTASSIUM SERUM 4.7 MEQ/L (3.5-5.1); THYROID STIMULATING HORMONE 2.02 uIU/ML (0.358-3.740)
== END ==
LOC: M WUC 15:17
PROVIDERS: ATTEND Nurse Practitioner Family
DX: E03.9 Hypothyroidism, unspecified (principal); E78.2 Mixed hyperlipidemia

== ENCOUNTER → 2019-05-04 | Outpatient (REF) | payer MEDICARE, MEDICAID ==
[~2019-05-04] MED LIST changes: -/ESOM40CA PO; -/WARF25TA PO; -/WARF5TA PO; +COUM1TAB17 PO; +COUM1TAB18 PO; -ENOX80SY SC; +LOVE0.6I2 SC; +NEXI1CAP3 PO
[2019-05-04 17:59] LABS: HEMATOCRIT 38.1 % (42.0-52.0); HEMOGLOBIN 12.4 g/dl (13.5-17.5); MEAN CORPUSCULAR HEMOGLOBIN 33.9 pg (27.0-33.0); MEAN CORPUSCULAR HGB CONC 32.5 g/dl (32.0-36.5); MEAN CORPUSCULAR VOLUME 104.1 fl (80.0-96.0); PLATELET COUNT, AUTOMATED 243 10^3/uL (150-450); RED BLOOD COUNT 3.66 10^6/uL (4.30-6.10); WHITE BLOOD COUNT 7.1 10^3/uL (4.0-10.0)
[2019-05-04 18:31] LABS: ALBUMIN 3.6 GM/DL (3.2-5.2); BILIRUBIN,TOTAL 0.1 MG/DL (0.2-1.0); CALCIUM LEVEL 8.2 MG/DL (8.8-10.2); CHOLESTEROL RISK RATIO 3.015 (<5); CREATININE FOR GFR 1.48 MG/DL (0.70-1.30); GLOMERULAR FILTRATION RATE 48.2 (>35); POTASSIUM SERUM 4.2 MEQ/L (3.5-5.1); PROSTATIC SPECIFIC AG MONITOR 0.19 NG/ML (< 4.00); THYROID STIMULATING HORMONE 2.67 uIU/ML (0.358-3.740)
== END ==
LOC: M SFHCPLAZ 14:44
PROVIDERS: ATTEND Nurse Practitioner Family
DX: N18.3 Chronic kidney disease, stage 3 (moderate) (principal); K21.9 Gastro-esophageal reflux disease without esophagitis; I13.0 Hypertensive heart and chronic kidney disease with heart failure and stage 1 through stage 4 chronic kidney disease, or unspecified chronic kidney disease; E78.2 Mixed hyperlipidemia; E03.9 Hypothyroidism, unspecified; Z85.46 Personal history of malignant neoplasm of prostate

== ENCOUNTER → 2019-09-06 | Outpatient (REF) | payer MEDICARE, MEDICAID ==
[~2019-09-06] MED LIST changes: -ASPI-222 PO; +ASPI-527 PO
== END ==
LOC: M SFHCPLAZ 11:53
PROVIDERS: ATTEND Nurse Practitioner Family
DX: I13.0 Hypertensive heart and chronic kidney disease with heart failure and stage 1 through stage 4 chronic kidney disease, or unspecified chronic kidney disease (principal); N18.3 Chronic kidney disease, stage 3 (moderate); E78.2 Mixed hyperlipidemia; E03.9 Hypothyroidism, unspecified; Z53.8 Procedure and treatment not carried out for other reasons

== ENCOUNTER → 2019-12-14 | Outpatient (CLI) | payer MEDICARE, MEDICAID ==
[2019-12-14 13:35] LABS: BASO # 0.1 10^3/uL (0.0-0.2); BASO % 0.7 % (0.0-1.0); EOS # 0.5 10^3/uL (0.0-0.5); EOS % 7.1 % (0.0-3.0); HEMATOCRIT 39.1 % (42.0-52.0); HEMOGLOBIN 12.6 g/dl (13.5-17.5); LYMPH # 1.6 10^3/uL (1.5-5.0); LYMPH % 21.1 % (24.0-44.0); MEAN CORPUSCULAR HEMOGLOBIN 33.2 pg (27.0-33.0); MEAN CORPUSCULAR HGB CONC 32.2 g/dl (32.0-36.5); MEAN CORPUSCULAR VOLUME 102.9 fl (80.0-96.0); MONO # 0.8 10^3/uL (0.0-0.8); MONO % 10.2 % (0.0-5.0); NEUTROPHILS # 4.6 10^3/uL (1.5-8.5); NEUTROPHILS % 60.6 % (36.0-66.0); PLATELET COUNT, AUTOMATED 215 10^3/uL (150-450); WHITE BLOOD COUNT 7.6 10^3/uL (4.0-10.0)
[2019-12-14 14:23] LABS: ALBUMIN 3.8 GM/DL (3.2-5.2); BILIRUBIN,TOTAL 0.3 MG/DL (0.2-1.0); CALCIUM LEVEL 8.4 MG/DL (8.8-10.2); CREATININE FOR GFR 1.62 MG/DL (0.70-1.30); GLOMERULAR FILTRATION RATE 43.3 (>35); TOTAL PROTEIN 6.9 GM/DL (6.4-8.2)
[2019-12-14 15:02] LABS: HEMOGLOBIN A1c 7.7 %
== END ==
LOC: M PLALAB 10:25
PROVIDERS: ATTEND Physician Assistant Medical
DX: E10.40 Type 1 diabetes mellitus with diabetic neuropathy, unspecified (principal); E78.2 Mixed hyperlipidemia; D63.1 Anemia in chronic kidney disease; I50.22 Chronic systolic (congestive) heart failure; Z85.46 Personal history of malignant neoplasm of prostate
CPT/HCPCS: 36415; 80053; 83036; 83880; 85025; G0103

== ENCOUNTER 2019-12-23 13:30 | Emergency (ER) | payer MEDICARE, MEDICAID ==
[~2019-12-23] VITALS: Ht 182.9 cm; Wt 82.7 kg
[2019-12-23 14:12] LABS: BASO % 0.4 % (0.0-1.0); EOS # 0.5 10^3/uL (0.0-0.5); HEMATOCRIT 33.9 % (42.0-52.0); HEMOGLOBIN 11.2 g/dl (13.5-17.5); LYMPH % 27.8 % (24.0-44.0); MEAN CORPUSCULAR HEMOGLOBIN 33.3 pg (27.0-33.0); MEAN CORPUSCULAR VOLUME 100.9 fl (80.0-96.0); MONO # 0.7 10^3/uL (0.0-0.8); MONO % 9.9 % (0.0-5.0); NEUTROPHILS % 54.6 % (36.0-66.0); PLATELET COUNT, AUTOMATED 218 10^3/uL (150-450); RED BLOOD COUNT 3.36 10^6/uL (4.30-6.10); WHITE BLOOD COUNT 7.3 10^3/uL (4.0-10.0)
[2019-12-23 14:38] LABS: CALCIUM LEVEL 7.8 MG/DL (8.8-10.2); CK-MB VALUE MASS 2.7 NG/ML (<3.6); CREATININE FOR GFR 1.56 MG/DL (0.70-1.30); FREE T4 0.94 NG/DL (0.76-1.46); GLOMERULAR FILTRATION RATE 45.3 (>35); MAGNESIUM LEVEL 2.6 MG/DL (1.8-2.4); MB/CK RELATIVE INDEX 1.58 (< OR =4); POTASSIUM SERUM 3.8 MEQ/L (3.5-5.1); THYROID STIMULATING HORMONE 1.55 uIU/ML (0.358-3.740); TROPONIN I 0.02 NG/ML (< 0.10)
--- NOTE | 2019-12-23 14:56 | REP ---
CT of the brain without IV contrast for trauma: Comparison is 12/01/2013. There is no subdural or epidural hematoma. There is no intraparenchymal or subarachnoid hemorrhage. There is no edema, mass effect or midline shift. There are bilateral basal ganglia calcifications, likely physiologic. The ventricles and sulci are moderately dilated compatible with diffuse volume loss. This is unchanged. There is chronic mucosal thickening in the ethmoid sinuses, unchanged, likely chronic sinusitis. Impression: There is no subdural/epidural hematoma or other acute hemorrhage. No edema or midline shift. Diffuse volume loss, unchanged. Chronic mucosal thickening of the ethmoid sinus air cells, likely chronic sinusitis. Electronically Signed by Baldomero Valdez MD 12/23/2019 02:48 P
[2019-12-23] MEDS ORDERED: ESOM1CAP5 PO (15:04)
[2019-12-23] MEDS ORDERED: CALCTAB89 PO (15:04)
[2019-12-23] MEDS ORDERED: FURO20TA2 PO (15:04)
[2019-12-23] MEDS ORDERED: VITA100054 PO (15:04)
[2019-12-23] MEDS ORDERED: ACET1TAB55 PO (15:04)
--- NOTE | 2019-12-23 15:41 | REP ---
Portable chest, 02:29 p.m., single AP view: Comparison is the PA and lateral chest of 01/24/2017. The lung davidson are clear. The cardiac size is normal. The valorie, mediastinum, and skeletal structures are unremarkable. There are sternotomy wires, unchanged. Impression: Negative portable chest. There is no interval change. Electronically Signed by Baldomero Valdez MD 12/23/2019 03:32 P
[2019-12-23 16:15] VITALS: BP 130/60
--- NOTE | 2019-12-23 20:33 | ECGEPIP ---
[facility] - ED Test Date: 2019-12-23 Pat Name: DARYL CARO Department: Room: - Gender: Male Miller Head Wet Process: anabel : 1935 Requested By: Barbra Jett Order Number: [id number] Reading MD: Barbra Jett Measurements Intervals [place] Rate: 65 P: 48 [place]: 266 QRS: -43 QRSD: 98 T: 67 QT: 437 QTc: 455 Interpretive Statements SINUS RHYTHM WITH FIRST DEGREE AV BLOCK MARKED LEFT AXIS DEVIATION PATTERN CONSISTENT WITH PULMONARY DISEASE SEPTAL MYOCARDIAL INFARCTION, OF INDETERMINATE AGE LAFB DECREASED RATE 12/18/17 Electronically Signed on 12-23-2019 20:33:26 EST by Barbra Jett
== END 2019-12-23 16:15 | disposition left against medical advice (07) ==
LOC: EDBD 13:30 → M ED 13:30
DX: R55 Syncope and collapse (principal); E11.9 Type 2 diabetes mellitus without complications; I50.9 Heart failure, unspecified; E78.9 Disorder of lipoprotein metabolism, unspecified; E07.9 Disorder of thyroid, unspecified; I73.9 Peripheral vascular disease, unspecified; M48.061 Spinal stenosis, lumbar region without neurogenic claudication; Z79.899 Other long term (current) drug therapy; Z79.890 Hormone replacement therapy; Z79.82 Long term (current) use of aspirin; Z79.4 Long term (current) use of insulin; Z88.8 Allergy status to other drugs, medicaments and biological substances

== ENCOUNTER → 2020-03-23 | Outpatient (REF) | payer MEDICARE, MEDICAID ==
[~2020-03-23] MED LIST changes: +ACET1TAB55 PO; +CALCTAB89 PO; +ESOM1CAP5 PO; +FURO20TA2 PO; +VITA100054 PO
[2020-03-23 18:10] LABS: HEMATOCRIT 37.1 % (42.0-52.0); HEMOGLOBIN 12.3 g/dl (13.5-17.5); MEAN CORPUSCULAR HEMOGLOBIN 33.9 pg (27.0-33.0); MEAN CORPUSCULAR HGB CONC 33.2 g/dl (32.0-36.5); MEAN CORPUSCULAR VOLUME 102.2 fl (80.0-96.0); PLATELET COUNT, AUTOMATED 235 10^3/uL (150-450); RED BLOOD COUNT 3.63 10^6/uL (4.30-6.10); WHITE BLOOD COUNT 8.4 10^3/uL (4.0-10.0)
[2020-03-23 18:21] LABS: ALBUMIN 3.7 GM/DL (3.2-5.2); BILIRUBIN,TOTAL 0.3 MG/DL (0.2-1.0); CHOLESTEROL RISK RATIO 3.056 (<5); CREATININE FOR GFR 1.31 MG/DL (0.70-1.30); FREE T4 0.95 NG/DL (0.76-1.46); GLOMERULAR FILTRATION RATE 55.4 (>35); POTASSIUM SERUM 4.8 MEQ/L (3.5-5.1); THYROID STIMULATING HORMONE 0.798 uIU/ML (0.358-3.740); TOTAL PROTEIN 7.1 GM/DL (6.4-8.2)
[2020-03-23 18:23] LABS: HEMOGLOBIN A1c 8.4 %
== END ==
LOC: M SFHCADAM 13:48
PROVIDERS: ATTEND Family Medicine
DX: R05 Cough (principal); N18.3 Chronic kidney disease, stage 3 (moderate); E08.51 Diabetes mellitus due to underlying condition with diabetic peripheral angiopathy without gangrene; E03.9 Hypothyroidism, unspecified

== ENCOUNTER → 2020-03-23 | Outpatient (CLI) | payer MEDICARE, MEDICAID ==
--- NOTE | 2020-03-24 08:03 | REP ---
REASON FOR EXAM: Chronic cough. PRIOR: 12/23/2019, a portable exam. FINDINGS: The superior mediastinal structures are midline. The cardiac silhouette is unremarkable in size, shape, and position. The diaphragmatic surfaces of the lungs are regular, and the costophrenic angles are clear. The pulmonary davidson are clear. The imaged osseous structures are intact. IMPRESSION: There is no acute cardiopulmonary disease. No significant change compared to the prior exam other than technique. Electronically Signed by Jamar Churchill DO 03/26/2020 07:51 A
== END ==
LOC: M ADAMS 13:56
PROVIDERS: ATTEND Family Medicine
DX: R05 Cough (principal); N18.3 Chronic kidney disease, stage 3 (moderate); E08.51 Diabetes mellitus due to underlying condition with diabetic peripheral angiopathy without gangrene; E03.9 Hypothyroidism, unspecified

== ENCOUNTER 2020-03-30 12:54 | Observation (INO) | payer MEDICARE, MEDICAID ==
[~2020-03-30] VITALS: Ht 182.9 cm; Wt 85.9 kg
[2020-03-30 13:32] LABS: BASO % 0.5 % (0.0-1.0); EOS # 0.1 10^3/uL (0.0-0.5); EOS % 1.1 % (0.0-3.0); HEMATOCRIT 33.8 % (42.0-52.0); HEMOGLOBIN 11.1 g/dl (13.5-17.5); LYMPH # 0.7 10^3/uL (1.5-5.0); LYMPH % 8.5 % (24.0-44.0); MEAN CORPUSCULAR HEMOGLOBIN 33.4 pg (27.0-33.0); MEAN CORPUSCULAR HGB CONC 32.8 g/dl (32.0-36.5); MEAN CORPUSCULAR VOLUME 101.8 fl (80.0-96.0); MONO # 0.7 10^3/uL (0.0-0.8); MONO % 7.9 % (0.0-5.0); NEUTROPHILS # 6.7 10^3/uL (1.5-8.5); NEUTROPHILS % 81.6 % (36.0-66.0); PLATELET COUNT, AUTOMATED 200 10^3/uL (150-450); RED BLOOD COUNT 3.32 10^6/uL (4.30-6.10); WHITE BLOOD COUNT 8.2 10^3/uL (4.0-10.0)
[2020-03-30] MEDS ORDERED: TRAM50TA2 PO (13:36)
[2020-03-30 13:44] LABS: INR 1.09; PROTHROMBIN TIME 13.8 SECONDS (11.8-14.0)
[2020-03-30 13:58] LABS: ALBUMIN 3.3 GM/DL (3.2-5.2); ALT/SGPT 19 U/L (12-78); BILIRUBIN,DIRECT 0.1 MG/DL (0.0-0.2); BILIRUBIN,TOTAL 0.3 MG/DL (0.2-1.0); BLOOD UREA NITROGEN 38 MG/DL (7-18); CALCIUM LEVEL 8.4 MG/DL (8.8-10.2); CARBON DIOXIDE LEVEL 30 MEQ/L (21-32); CHLORIDE LEVEL 105 MEQ/L (98-107); CK-MB VALUE MASS 2.7 NG/ML (<3.6); CPK CREATINE PHOSPHOKINASE 130 U/L (39-308); CREATININE FOR GFR 1.74 MG/DL (0.70-1.30); GLOMERULAR FILTRATION RATE 39.9 (>35); GLUCOSE, FASTING 252 MG/DL (70-100); MB/CK RELATIVE INDEX 2.08 (< OR =4); POTASSIUM SERUM 3.6 MEQ/L (3.5-5.1); SODIUM LEVEL 142 MEQ/L (136-145); TOTAL PROTEIN 6.3 GM/DL (6.4-8.2); TROPONIN I < 0.02 NG/ML (< 0.10)
--- NOTE | 2020-03-30 14:34 | REP ---
ORAL CHEST X-RAY: Single view. HISTORY: Syncope/near syncope. COMPARISON CHEST X-RAY: March 23, 2020. FINDINGS: Monitoring electrodes overlie the chest. Median sternotomy wires are seen. Heart size is borderline unchanged. Pulmonary vasculature is not increased. No infiltrate is seen. There is no evidence of pleural effusion. No bony lesion is seen. IMPRESSION: Borderline heart size. Prior sternotomy. Otherwise no acute disease. Electronically Signed by wKame Gee MD 03/30/2020 04:18 P
[2020-03-30] MEDS: NS 1,000 ML IV SCH ×2 (14:52→23:38)
[2020-03-30] MEDS ORDERED: MOM 30ML SUSPENSION UDC PO ONE (15:00)
[2020-03-30] MEDS ORDERED: NEXI40CA PO (15:16)
[2020-03-30] MEDS ORDERED: VITAD1000T PO (15:16)
[2020-03-30] MEDS ORDERED: DEXTROSE 50% 50 ML SYRINGE IV PRN (15:30)
[2020-03-30] MEDS ORDERED: ACETAMINOPHEN 325 MG TAB PO PRN (15:30)
[2020-03-30] MEDS ORDERED: GLUCOSE 4GM CHEW TABLET PO PRN (15:30)
[2020-03-30] MEDS ORDERED: NITROGLYCERIN 0.4 MG SUBL TABLET SL PRN (15:30)
[2020-03-30] MEDS ORDERED: ONDANSETRON 4MG/2ML VIAL IV ONE (15:30)
[2020-03-30] MEDS ORDERED: GLUCAGON INJ 1MG VIAL SC PRN (15:30)
[2020-03-30] MEDS ORDERED: traMADol 50 MG TAB PO PRN (15:30)
--- NOTE | 2020-03-30 15:53 | REP ---
KUB ABDOMEN AND PELVIS: KUB film of the abdomen and pelvis performed. No dilated bowel loops are seen and there is no evidence of bowel obstruction. Metallic wires and clips are seen in the lower thorax. Mild scattered vascular calcifications are seen in the abdomen and pelvis. There are degenerative changes of the spine. IMPRESSION: No evidence of bowel obstruction. Electronically Signed by Baldomero Rm MD 03/30/2020 04:24 P
[2020-03-30 16:35] VITALS: BP 103/55
[2020-03-30] MEDS: HumaLOG INSULIN (NovoLOG) PER UNIT SC SCH (17:30)
--- NOTE | 2020-03-30 19:46 | HPEPDOC ---
General Date of Admission March 30, 2020 at 12:55 Date of Service: March 30, 2020 Attending Physician: TOAN THAPA MD Chief Complaint The patient is a 84-year-old male admitted with a reason for visit of Mally,Near Syncope,Orthostatic Hypotension. Source: Patient, RN/MD Exam Limitations: No limitations Associated Symptoms: Fever, Nausea, Vomiting, Other (presyncope) History of Present Illness 81-year-old who was brought in by ambulance after a presyncopal episode while attempting to take bowel movement, after complaining of constipation. Initial BM at that time was noted with profound hypotension with systolics in the 70s and by the time EMS arrived, he got 250cc bolus enroute with return to normotension and awake and alert. In the ED, he arrived hemodynamically stable and afebrile, reporting constipation and was found to be orthostatic despite 1L bolus. Work up was notable for Cr 1.74 from a last checked 1.31, WBC 8.2, hgb 11.1, na 142, K 3.6, LFTs wnl, lipase wnl, CXR wnl with a non ischemic EKG and negative troponin. He was given milk of mag for his constipation and zofran for nausea. On my evaluation, he started vomiting, reported feeling cold and shortly after had diarrhea. He had a respiratory panel that reflexed to covid-19 testing that was negative, had stool sample sent for an acute GI panel and admitted to [facility]. An hour into arriving to the floor, he had a fever to 101.1 and soft BPs at which point BCx, UA/UCx, lactate, MRSA were sent and he was empirically started on vanc/piptazo. Home Medications Scheduled Aspirin (Aspirin EC) 325 Mg Tab, 325 MG PO DAILY, (Reported) Calcium Carbonate (Calcium) 600 Mg Tablet, 1 TAB PO DAILY, (Reported) Carbamazepine (Carbamazepine ER) 200 Mg Sade, 200 MG PO BID, (Reported) Cholecalciferol (Vitamin D3) (Vitamin D3) 1,000 Unit Tablet, 1,000 UNITS PO DAILY, (Reported) Cilostazol (Cilostazol) 100 Mg Tab, 100 MG PO DAILY, (Reported) Esomeprazole Magnesium (Nexium) 40 Mg Capsule.dr, 40 MG PO DAILY, (Reported) Furosemide (Furosemide) 20 Mg Tablet, 20 MG PO BID, (Reported) Insulin Human Lispro (Novolog) 100 U/Ml Inj, 1 DOSE SC ASDIRECTED, (Reported) VIA INSULIN PUMP Levothyroxine Sodium (Levothyroxine Sodium) 50 Mcg Tab, 50 MCG PO QAM, (Reported) Losartan Potassium (Losartan Potassium) 50 Mg Tab, 50 MG PO DAILY, (Reported) Pravastatin Sodium (Pravastatin Sodium) 80 Mg Tab, 80 MG PO QHS, (Reported) Scheduled PRN Acetaminophen (Acetaminophen) 325 Mg Tablet, 650 MG PO Q4H PRN for PAIN, (Reported) Nitroglycerin (Nitrostat) 0.4 Mg Subl, 0.4 MG SL Q5MP PRN for CHEST PAIN, (Reported) Tramadol HCl (Tramadol HCl) 50 Mg Tablet, 50 MG PO DAILY PRN for PAIN, (Reported) Allergies Coded Allergies: benazepril (Verified Allergy, Mild, cough, 12/23/19) Past Medical History Medical History 1. Type 2 diabetes. 2. CAD s/p 4 vessel CABG 3. Diabetic neuropathy. 4. Hyperlipidemia. 5. Prostate cancer. 6. Status post radiation. 7. Benign prostatic hypertrophy (BPH). 8. Vitamin D deficiency. 9. Osteopenia. 10. Hypothyroidism. 11. Peripheral arterial disease. 12. Chronic kidney disease stage III. 13. Chronic systolic heart failure. 14. 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 Surgical History CABG L knee Cataracts Family History Significant Family History: No pertinent family hx Social History * Smoker: Denies Alcohol: Denies Drugs: denies Recent Travel/Sick Contacts: Denies: Recent travel, Recent sick contacts Psychosocial History: No pertinent psych hx A-FIB/CHADSVASC A-FIB History Current/History of A-Fib/PAF?: No Current PO Anticoag Therapy: No Age/Risk Factor Scoring CHADSVASC: CHADSVASC Response (Comments) Value Age Risk Factor Age >/= 75 years old 2 Gender Risk Factor Male 0 Hx of CHF Yes 1 Hx of HTN Yes 1 Hx of Stroke/TIA/or VTE No 0 Hx of Diabetes Yes 1 Hx of Vascular Disease Yes 1 Total 6 Treatment Treatment ordered: NONE Reason Anticoagulant not given: Not indicated/[id number] Review of Systems Constitutional: Reports: Chills, Fever, Weakness; Denies: Night Sweats Eyes: Denies: Pain, Vision change ENT: Denies: Head Aches, Ear Pain, Dysphagia Skin: Denies: Rash, Lesions, Breakdown Pulmonary: Denies: Dyspnea, Cough Cardiovascular: Denies: Chest Pain, Palpitations, Orthopnea, Paroxysmal Noc. Dyspnea, Lt Headedness Gastrointestinal: Reports: Nausea, Vomiting, Diarrhea, Constipation; Denies: Abdominal Pain, Melena, Hematochezia Genitourinary: Denies: Dysuria, Frequency, Incontinence, Retention Hematologic: Denies: Bruising, Bleeding Excessively Endocrine: Denies: Polydipsia, Polyphagia, Polyuria, Heat Intolerance, Cold Intolerance, Other Endocrine Sx Musculoskeletal: Denies: Neck Pain, Back Pain, Joint Pain, Muscle Pain, Spasms Neurological: Denies: Weakness, Numbness, Change in speech, Confusion Psych: Reports: Mood Normal; Denies: Depression, Memory Issues Physical Examination General Exam: Positive: Alert, Cooperative, No Acute Distress Eye Exam: Positive: PERRLA, Conjunctiva & lids normal, EOMI; Negative: Sclera icteric ENT Exam: Positive: Atraumatic, Mucous membr. moist/pink, Pharynx Normal Neck Exam: Positive: Supple; Negative: JVD, thyromegaly Chest Exam: Positive: Clear to auscultation, Normal air movement; Negative: Rales, Rhonchi, Wheezing Heart Exam: Positive: Rate Normal, Regular Rhythm, Normal S1, Normal S2; Negative: Murmurs, Rubs Telemetry: Positive: No significant arrhythmia Abdomen Exam: Positive: Normal bowel sounds, Soft; Negative: Tenderness, Hepatospenomegaly, Mass Extremity Exam: Positive: Normal pulses; Negative: Clubbing, Cyanosis, Edema Skin Exam: Positive: Nl turgor and temperature; Negative: Breakdown, Lesion Neuro Exam: Positive: Normal Speech, Strength at 5/5 X4 ext, Normal Tone, C ranial Nerves 3-12 NL Psych Exam: Positive: Mental status NL, Memory Intact, Oriented x 3 Vital Signs Vital Signs Date Time Temp Pulse Resp B/P (MAP) Pulse Ox O2 Delivery O2 Flow Rate FiO2 03/30/20 18:00 101.1 03/30/20 16:35 102 18 103/55 (71) 87 Room Air Laboratory Data Labs 24H Laboratory Tests 2 03/30/20 13:14: Immature Granulocyte % (Auto) 0.4, Neutrophils (%) (Auto) 81.6H, Lymphocytes (%) (Auto) 8.5L, Monocytes (%) (Auto) 7.9H, Eosinophils (%) (Auto) 1.1, Basophils (%) (Auto) 0.5, Neutrophils # (Auto) 6.7, Lymphocytes # (Auto) 0.7L, Monocytes # (Auto) 0.7, Eosinophils # (Auto) 0.1, Basophils # (Auto) 0.0, Nucleated Red Blood Cells % (auto) 0.0, Prothrombin Time 13.8, Prothromb Time International Ratio 1.09, Activated Partial Thromboplast Time 28.0, Anion Gap 7L, Glomerular Filtration Rate 39.9, Calcium Level 8.4L, Total Bilirubin 0.3, Direct Bilirubin 0.1, Aspartate Amino Transf (AST/SGOT) 10, Alanine Aminotransferase (ALT/SGPT) 19, Alkaline Phosphatase 104, Total Creatine Kinase 130, Creatine Kinase MB 2.7, Creatine Kinase MB Relative Index 2.08, Troponin I < 0.02, Total Protein 6.3L, Albumin 3.3, Albumin/Globulin Ratio 1.10, Thyroid Stimulating Hormone (TSH) 1.440 03/30/20 13:18: Bedside Glucose (Misc Panel) 257H 03/30/20 15:43: Bedside Glucose (Misc Panel) 244H 03/30/20 17:15: Bedside Glucose (Misc Panel) 223H CBC/BMP Laboratory Tests 03/30/20 13:14 Microbiology Microbiology 03/30/20 Blood Culture, Received Pending 03/30/20 Blood Culture, Received Pending 03/30/20 Coronavirus COVID-19 PCR ([facility]), Received Pending 03/30/20 - Final, Complete Assessment/Plan 84 yo man who presented with presyncope reporting constipation and found to be orthostatic and with an MALLY now admitted to medicine where he is declaring sepsis with fever, relative hypotension, tachycardia now placed on vanc/piptazo with ongoing infectious workup. Sepsis: Fever, tachycardia with associated hypotension with N/V/D -respiratory panel negative, covid-19 negative -acute GI panel for diarrhea pending -BCx -UA with reflex to culture -KUB was done that showed no obstruction -CXR without infiltrates -empiric vanc/piptazo, MRSA PCR -s/p 1L in the ED, continue NS @ 125cc/hr MALLY on CKD: Most likely 2/2 dehydration with constipation, orthostasis and now septoid -s/p 1L in the ED, 125cc/hr NS -monitor Cr CAD s/p CABG: -ASA -SLN PRN HLD: -continue home Pravastatin Hypothyroidism: -continue home Synthroid HTN: -hold ARB in the setting of soft BP and MALLY GERD: -continue pantoprazole Seizure disorder: -continue tegretol DM: -has insulin pump -placed SSI in case he has hyperglycemia -hypoglycemia protocol -FSBG AC/HS history of prostate CA: -continue home cilostazol Chronic pain: -continue PRN tramadol -continue home vit D and calciu carbonate DVT ppx: heparin Q12H Diet: consistent carb, 2g sodium Dispo: medsurg, PT/OT consulted Plan / VTE VTE Prophylaxis Ordered?: Yes TOAN THAPA MD March 30, 2020 19:46
[2020-03-30] MEDS: PIPERACILLIN/TAZOBACTAM SOD 3.375 GM in D5W MINI-BAG PLUS 50 ML IV SCH (20:29)
[2020-03-30 21:00] VITALS: BP 114/50
[2020-03-30] MEDS ORDERED: VANCOMYCIN HCL 1,000 MG, VIAL MATE ADAPTER 1 EACH in D5W 250 ML IV ONE (21:00)
[2020-03-30] MEDS ORDERED: HumaLOG INSULIN (NovoLOG) PER UNIT SC SCH (21:00)
[2020-03-30] MEDS: carBAMazepine XR 200 MG TAB PO SCH (21:44)
[2020-03-30] MEDS: PRAVASTATIN 20 MG TAB PO SCH (21:44)
[2020-03-30] MEDS: HEPARIN SOD (PORCINE) 5000UNITS/ML VIAL (J1644 PER 1000UNITS) SC SCH (21:45)
[2020-03-30 22:00] VITALS: BP 108/56
[2020-03-30] MEDS ORDERED: VANCOMYCIN HCL 500 MG in D5W MINI-BAG PLUS 100 ML IV ONE (22:00)
--- NOTE | 2020-03-30 22:53 | ECGEPIP ---
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
[2020-03-30 23:00] VITALS: BP 107/51
[2020-03-31] MEDS: PIPERACILLIN/TAZOBACTAM SOD 3.375 GM in D5W MINI-BAG PLUS 50 ML IV SCH ×4 (01:42→20:14)
[2020-03-31 03:02] VITALS: BP 103/50
[2020-03-31 06:00] VITALS: BP 108/53
[2020-03-31 06:00] LABS: HEMATOCRIT 31.5 % (42.0-52.0); HEMOGLOBIN 10.3 g/dl (13.5-17.5); MEAN CORPUSCULAR HEMOGLOBIN 33.7 pg (27.0-33.0); MEAN CORPUSCULAR HGB CONC 32.7 g/dl (32.0-36.5); MEAN CORPUSCULAR VOLUME 102.9 fl (80.0-96.0); PLATELET COUNT, AUTOMATED 161 10^3/uL (150-450); RED BLOOD COUNT 3.06 10^6/uL (4.30-6.10)
[2020-03-31] MEDS: LEVOTHYROXINE 50MCG TABLET (0.05MG) PO SCH (06:08)
[2020-03-31] MEDS: NS 1,000 ML IV SCH ×2 (06:11→20:14)
[2020-03-31 06:36] LABS: CALCIUM LEVEL 7.9 MG/DL (8.8-10.2); CREATININE FOR GFR 1.48 MG/DL (0.70-1.30); GLOMERULAR FILTRATION RATE 48.1 (>35); POTASSIUM SERUM 4.5 MEQ/L (3.5-5.1)
[2020-03-31] MEDS ORDERED: HumaLOG INSULIN (NovoLOG) PER UNIT SC ONE (06:45)
[2020-03-31] MEDS: HumaLOG INSULIN (NovoLOG) PER UNIT SC SCH (07:30)
[2020-03-31] MEDS: HEPARIN SOD (PORCINE) 5000UNITS/ML VIAL (J1644 PER 1000UNITS) SC SCH ×2 (08:36→20:14)
[2020-03-31] MEDS: VITAMIN D 1,000 INTERNATIONAL UNITS TABLET PO SCH (08:36)
[2020-03-31] MEDS: carBAMazepine XR 200 MG TAB PO SCH ×2 (08:36→20:14)
[2020-03-31] MEDS: ASPIRIN ENTERIC 325 MG TAB PO SCH (08:36)
[2020-03-31] MEDS: CALCIUM CARBONATE 500 MG CHEW U/D PO SCH (08:36)
[2020-03-31] MEDS: PANTOPRAZOLE 40MG TAB (PROTONIX) PO SCH (08:36)
[2020-03-31] MEDS: CILOSTAZOL 100 MG TAB (PLETAL) PO SCH (08:36)
[2020-03-31] MEDS ORDERED: VANCOMYCIN HCL 1,000 MG, VIAL MATE ADAPTER 1 EACH in D5W 250 ML IV SCH (09:00)
[2020-03-31] MEDS ORDERED: LOSARTAN 50 MG TAB PO SCH (09:00)
[2020-03-31 10:48] VITALS: BP_SYST 104; BP_SYST 106; BP_SYST 111; BP_DIAS 44; BP_DIAS 50; BP_DIAS 52
[2020-03-31 14:00] VITALS: BP 97/46
--- NOTE | 2020-03-31 16:57 | IPNPDOC ---
Text Note Date of Service The patient was seen on 03/31/20. NOTE Subjective: -Doing so much better, awake, alert, much improved nausea, at times teary about the hardships he has faced recently Physical Examination General: Alert, Cooperative, No Acute Distress Eye: PERRLA, Conjunctiva & lids normal, EOMI, anicteric ENT: Atraumatic, Mucous membr. moist/pink, Pharynx Normal Neck: Supple, no JVD or thyromegaly Chest: Clear to auscultation, Normal air movement, no rales, rhonchi or wheezing Heart: RRR, no mrg Telemetry: Sinus, no significant arrhythmia Abdomen: Normal bowel sounds, soft, NTND Extremity: Normal pulses, no edema, WWP Skin Exam: Nl turgor and temperature, no lesions Neuro: Normal Speech, Strength at 5/5 X4 ext, Normal Tone, Cranial Nerves 3-12 NL Psych: Mental status NL, Memory Intact, Oriented x 3 Labs: reviewed WBC 12 hgb 10.3 na 134 K 4.5 Cr 1.48 glucose this AM 507 UA - +blood, +WBC, no bacteria Microbiology 03/30/20 Blood Culture, NGTD 03/30/20 Blood Culture,NGTD 03/30/20 Coronavirus COVID-19 PCR negative 03/30/20 - Respirator PCR negative Assessment: 84 yo man who presented with presyncope reporting constipation and found to be orthostatic and with an MALLY and admitted to medicine where he evolved into garret sepsis with fever, relative hypotension, tachycardia, currently HDS and afebrile on empiric piptazo with ongoing infectious workup. Sepsis: Fever, tachycardia with associated hypotension with N/V/D -respiratory panel negative, covid-19 negative -acute GI panel for diarrhea pending -BCx NGTD -UA with RBCs and WBC but negative for bacteria, with ++glucose -KUB was done that showed no obstruction -CXR without infiltrates -continue empiric piptazo, MRSA negative so vanc stopped -s/p 1L in the ED, reduce NS to 75cc/hr MALLY on CKD: Most likely 2/2 dehydration with constipation, orthostasis and sepsis, now resolved back to baseline with hydration -s/p 1L in the ED, 75cc/hr NS -monitor Cr CAD s/p CABG: -ASA -SLN PRN HLD: -continue home Pravastatin Hypothyroidism: -continue home Synthroid HTN: -continue holding ARB in the setting of soft BP and MALLY GERD: -continue pantoprazole Seizure disorder: -continue tegretol DM: -using his insulin pump -discontinue SSI now that he is using his pump -hypoglycemia protocol -FSBG AC/HS history of prostate CA: -continue home cilostazol Chronic pain: -continue PRN tramadol -continue home vit D and calcium carbonate DVT ppx: heparin Q12H Diet: consistent carb, 2g sodium Dispo: medsurg, PT/OT consulted VS,Yesenia, I+O VS, Yesenia, I+O Laboratory Tests 03/30/20 13:14 03/31/20 05:28 Vital Signs Date Time Temp Pulse Resp B/P (MAP) Pulse Ox O2 Delivery O2 Flow Rate FiO2 03/31/20 06:00 98.4 90 18 108/53 (71) 93 Room Air I&O- Last 24 Hours up to 6 AM 03/31/20 05:59 Intake Total 1580 ml Output Total 750 ml Balance 830 ml TOAN THAPA MD March 31, 2020 08:26
[2020-03-31] MEDS: PRAVASTATIN 20 MG TAB PO SCH (20:14)
[2020-03-31 22:00] VITALS: BP 101/47
[2020-04-01] MEDS: PIPERACILLIN/TAZOBACTAM SOD 3.375 GM in D5W MINI-BAG PLUS 50 ML IV SCH ×2 (02:10→08:11)
[2020-04-01 05:13] LABS: HEMOGLOBIN 9.1 g/dl (13.5-17.5); MEAN CORPUSCULAR HEMOGLOBIN 34.2 pg (27.0-33.0); MEAN CORPUSCULAR HGB CONC 33.7 g/dl (32.0-36.5); MEAN CORPUSCULAR VOLUME 101.5 fl (80.0-96.0); PLATELET COUNT, AUTOMATED 152 10^3/uL (150-450); RED BLOOD COUNT 2.66 10^6/uL (4.30-6.10)
[2020-04-01 05:39] LABS: CALCIUM LEVEL 7.5 MG/DL (8.8-10.2); CREATININE FOR GFR 1.42 MG/DL (0.70-1.30); GLOMERULAR FILTRATION RATE 50.4 (>35); POTASSIUM SERUM 3.6 MEQ/L (3.5-5.1)
[2020-04-01 06:00] VITALS: BP 133/64
[2020-04-01] MEDS: LEVOTHYROXINE 50MCG TABLET (0.05MG) PO SCH (06:04)
[2020-04-01] MEDS: ASPIRIN ENTERIC 325 MG TAB PO SCH (08:11)
[2020-04-01] MEDS: HEPARIN SOD (PORCINE) 5000UNITS/ML VIAL (J1644 PER 1000UNITS) SC SCH (08:11)
[2020-04-01] MEDS: carBAMazepine XR 200 MG TAB PO SCH (08:11)
[2020-04-01] MEDS: PANTOPRAZOLE 40MG TAB (PROTONIX) PO SCH (08:11)
[2020-04-01] MEDS: CILOSTAZOL 100 MG TAB (PLETAL) PO SCH (08:11)
[2020-04-01] MEDS: VITAMIN D 1,000 INTERNATIONAL UNITS TABLET PO SCH (08:11)
[2020-04-01] MEDS: CALCIUM CARBONATE 500 MG CHEW U/D PO SCH (08:11)
[2020-04-01] MEDS ORDERED: SENN-52 PO (10:59)
--- NOTE | 2020-04-01 11:01 | IPNPDOC ---
Text Note Date of Service The patient was seen on 04/01/20. NOTE Subjective: -Doing so much better, awake, alert, asking to be discharged home Physical Examination General: Alert, Cooperative, No Acute Distress Eye: PERRLA, Conjunctiva & lids normal, EOMI, anicteric ENT: Atraumatic, Mucous membr. moist/pink, Pharynx Normal Neck: Supple, no JVD or thyromegaly Chest: Clear to auscultation, no rales, rhonchi or wheezing Heart: RRR, no mrg Abdomen: Normal bowel sounds, soft, NTND Extremity: Normal pulses, no edema, WWP Skin Exam: Nl turgor and temperature, no lesions Neuro: Normal Speech, strength at 5/5 X4 ext, normal tone, CN 2-12 NL Psych: Mental status NL, Memory Intact, Oriented x 3 Labs: reviewed WBC 10 hgb 9.2 na 141 K 3.6 Cr 1.42 UA - +blood, +WBC, no bacteria, negative leuks and nitrites Microbiology 03/30/20 Blood Culture, NGTD 03/30/20 Blood Culture,NGTD 03/30/20 Coronavirus COVID-19 PCR negative 03/30/20 - Respirator PCR negative Assessment: 84 yo man who presented with presyncope reporting constipation and found to be orthostatic and with an MALLY and admitted to medicine where he evolved to have +SIRS with fever, relative hypotension, tachycardia, currently HDS and afebrile with a grossly negative infectious workup. +SIRS: Fever, tachycardia with associated borderline soft BPs with N/V, initially reporting constipation, then diarrhea after milk of mag -respiratory panel negative, covid-19 negative -acute GI panel for diarrhea negative -BCx NGTD -UA with RBCs and WBC but negative for bacteria, with ++glucose -KUB was done that showed no obstruction -CXR without infiltrates -discontinue empiric piptazo without evidence of infection -s/p IV fluids hydration MALLY on CKD: 2/2 dehydration with constipation, orthostasis and +SIRSm now resolved back to baseline with hydration -s/p IVF -monitor Cr, now at baseline of 1.42 CAD s/p CABG: -ASA -SLN PRN HLD: -continue home Pravastatin Hypothyroidism: -continue home Synthroid HTN: -continue holding ARB in the setting of soft BP and MALYL GERD: -continue pantoprazole Seizure disorder: -continue tegretol DM: -using his insulin pump -hypoglycemia protocol -FSBG AC/HS history of prostate CA: -continue home cilostazol Chronic pain: -continue PRN tramadol -continue home vit D and calcium carbonate DVT ppx: heparin Q12H Diet: consistent carb, 2g sodium Dispo: Home with PT VS,Fishbone, I+O VS, Fishbone, I+O Laboratory Tests 04/01/20 04:22 Vital Signs Date Time Temp Pulse Resp B/P (MAP) Pulse Ox O2 Delivery O2 Flow Rate FiO2 04/01/20 06:00 97.8 83 18 133/64 (87) 94 Room Air I&O- Last 24 Hours up to 6 AM 04/01/20 06:00 Intake Total 4655 ml Output Total 600 ml Balance 4055 ml TOAN THAPA MD April 01, 2020 08:53
--- NOTE | 2020-04-01 11:14 | DS.PDOC ---
Discharge Summary General Date of Admission March 30, 2020 at 12:55 Date of Discharge 04/01/2020 Attending Physician: TOAN THAPA MD Discharge Summary PROCEDURES PERFORMED DURING STAY: None ADMITTING DIAGNOSES: 1. Near syncope DISCHARGE DIAGNOSES: 1. Constipation 2. SIRS without active infection 3. Dehydration with orthostatic hypotension 4. Type 2 diabetes. 5. CAD s/p 4 vessel CABG 6. Diabetic neuropathy. 7. Hyperlipidemia. 8. History of prostate cancer. 9. Vitamin D deficiency. 10. Osteopenia. 11. Hypothyroidism. 12. Peripheral arterial disease. 13. Chronic kidney disease stage III. 14. Chronic systolic heart failure. COMPLICATIONS/CHIEF COMPLAINT: Sean,Near Syncope,Orthostatic Hypotension. HISTORY OF PRESENT ILLNESS: 81-year-old who was brought in by ambulance after a presyncopal episode while attempting to take bowel movement, after complaining of constipation. Initial BM at that time was noted with profound hypotension with systolics in the 70s and by the time EMS arrived, he got 250cc bolus enroute with return to normotension and awake and alert. HOSPITAL COURSE: In the ED, he arrived hemodynamically stable and afebrile, reporting cons tipation and was found to be orthostatic despite 1L bolus. Work up was notable for Cr 1.74 from a last checked 1.31, WBC 8.2, hgb 11.1, na 142, K 3.6, LFTs wnl, lipase wnl, CXR wnl with a non ischemic EKG and negative troponin. He was given milk of mag for his constipation and zofran for nausea. On the floor he described his presyncope as being related to his ongoing constipation and straining with recent poor PO. He was found to be orthostatic and with an SEAN and started on gentle fluids. His course was c/b an episode of fever, relative hypotension, tachycardia and he was briefly placed on empiric vanc/piptazo that were discontinued after he had a negative respiratory panel negative, covid-19 and GI panel. BCx were negative, UA had glucosuria without evidence of infection, KUB was negative for obstruction, while CXR was without infiltrates and he was MRSA negative. His SEAN on CKD was 2/2 dehydration with constipation, orthostasis and resolved with hydration. His orthostasis also resolved with hydration and he was started on BID senna/colace for constipation. He worked with PT that recommended home with home PT, and he is now being discharged home to follow up with his PCP. DISCHARGE MEDICATIONS: Please see below. ALLERGIES: Please see below. PHYSICAL EXAMINATION ON DISCHARGE: VITAL SIGNS: Please see below. General: Alert, Cooperative, No Acute Distress Eye: PERRLA, Conjunctiva & lids normal, EOMI, anicteric ENT: Atraumatic, MMM Neck: Supple, no JVD or thyromegaly Chest: Clear to auscultation, Normal air movement, no rales, rhonchi or wheezing Heart: RRR, no mrg Abdomen: Normal bowel sounds, soft, NTND Extremity: Normal pulses, no edema, WWP Skin Exam: Nl turgor and temperature, no lesions Neuro: Normal Speech, Strength at 5/5 X4 ext, Normal Tone, Cranial Nerves 3-12 NL Psych: Mental status NL, Memory Intact, Oriented x 3 LABORATORY DATA: Please see below. IMAGING: CXR: IMPRESSION: Borderline heart size. Prior sternotomy. Otherwise no acute disease AXR: No evidence of bowel obstruction. PROGNOSIS: Good ACTIVITY: As tolerated DIET: consistent carb, 2g sodium DISCHARGE PLAN: Home with BID senna/colace and PCP follow up within 7d DISPOSITION: Home with home PT and nursing DISCHARGE INSTRUCTIONS: 1. Home with BID senna/colace and PCP follow up within 7d ITEMS TO FOLLOWUP ON ON OUTPATIENT: 1. Constipation 2. near syncope episodes with dehydration 3. Deconditioning with recommended home PT DISCHARGE CONDITION: Stable TIME SPENT ON DISCHARGE: 40 minutes. Vital Signs/I&Os Vital Signs Date Time Temp Pulse Resp B/P (MAP) Pulse Ox O2 Delivery O2 Flow Rate FiO2 04/01/20 06:00 97.8 83 18 133/64 (87) 94 Room Air I&O- Last 24 Hours up to 6 AM 04/01/20 06:00 Intake Total 4655 ml Output Total 600 ml Balance 4055 ml Laboratory Data Labs 24H Laboratory Tests 2 03/31/20 11:58: Bedside Glucose (Misc Panel) 268H 03/31/20 13:42: Bedside Glucose (Misc Panel) 237H 03/31/20 15:58: Bedside Glucose (Misc Panel) 218H 03/31/20 19:07: Bedside Glucose (Misc Panel) 212H 03/31/20 21:57: Bedside Glucose (Misc Panel) 186H 04/01/20 03:06: Bedside Glucose (Misc Panel) 130H 04/01/20 04:22: Nucleated Red Blood Cells % (auto) 0.0, Anion Gap 9, Glomerular Filtration Rate 50.4, Calcium Level 7.5L 04/01/20 05:30: Bedside Glucose (Misc Panel) 248H 04/01/20 10:05: Bedside Glucose (Misc Panel) 324H CBC/BMP Laboratory Tests 04/01/20 04:22 FSBS Laboratory Tests Test 03/31/20 11:58 03/31/20 13:42 03/31/20 15:58 03/31/20 19:07 Range/Units Bedside Glucose (Misc Panel) 268 237 218 212 83-110 MG/DL Test 03/31/20 21:57 04/01/20 03:06 04/01/20 05:30 04/01/20 10:05 Range/Units Bedside Glucose (Misc Panel) 186 130 248 324 83-110 MG/DL Microbiology Microbiology 03/31/20 Gastrointestinal Tract Panel (PCR) - Final, Complete 03/30/20 Blood Culture - Preliminary, Resulted No growth after 24 hours . All specim... 03/30/20 Blood Culture - Preliminary, Resulted No growth after 24 hours . All specim... 03/30/20 - Final, Complete Discharge Medications Scheduled Aspirin (Aspirin EC) 325 Mg Tab, 325 MG PO DAILY, (Reported) Calcium Carbonate (Calcium) 600 Mg Tablet, 1 TAB PO DAILY, (Reported) Carbamazepine (Carbamazepine ER) 200 Mg Sade, 200 MG PO BID, (Reported) Cholecalciferol (Vitamin D3) (Vitamin D3) 1,000 Unit Tablet, 1,000 UNITS PO DAILY, (Reported) Cilostazol (Cilostazol) 100 Mg Tab, 100 MG PO DAILY, (Reported) Esomeprazole Magnesium (Nexium) 40 Mg Capsule.dr, 40 MG PO DAILY, (Reported) Furosemide (Furosemide) 20 Mg Tablet, 20 MG PO BID, (Reported) Insulin Human Lispro (Novolog) 100 U/Ml Inj, 1 DOSE SC ASDIRECTED, (Reported) VIA INSULIN PUMP Levothyroxine Sodium (Levothyroxine Sodium) 50 Mcg Tab, 50 MCG PO QAM, (Reported) Losartan Potassium (Losartan Potassium) 50 Mg Tab, 50 MG PO DAILY, (Reported) Pravastatin Sodium (Pravastatin Sodium) 80 Mg Tab, 80 MG PO QHS, (Reported) Sennosides/Docusate Sodium (Senna Plus Tablet) 1 Each Tablet, 1 TAB PO BID Scheduled PRN Acetaminophen (Acetaminophen) 325 Mg Tablet, 650 MG PO Q4H PRN for PAIN, (Reported) Nitroglycerin (Nitrostat) 0.4 Mg Subl, 0.4 MG SL Q5MP PRN for CHEST PAIN, (Reported) Tramadol HCl (Tramadol HCl) 50 Mg Tablet, 50 MG PO DAILY PRN for PAIN, (Reported) Allergies Coded Allergies: benazepril (Verified Allergy, Mild, cough, 12/23/19) TOAN THAPA MD April 01, 2020 11:14
== END 2020-04-01 11:54 | disposition home health service (06) ==
LOC: M ED 12:54 → EDBD 12:54 → M ED INP 12:55 → ENRESERV 16:30 → M MSPAV 16:45 → ENRESERV 17:19
PROVIDERS: ADMIT Internal Medicine; ATTEND Internal Medicine
DX: K59.00 Constipation, unspecified (principal); E86.0 Dehydration; I95.1 Orthostatic hypotension; N17.9 Acute kidney failure, unspecified; R00.0 Tachycardia, unspecified; R50.9 Fever, unspecified; R65.10 Systemic inflammatory response syndrome (SIRS) of non-infectious origin without acute organ dysfunction; E11.40 Type 2 diabetes mellitus with diabetic neuropathy, unspecified; I25.10 Atherosclerotic heart disease of native coronary artery without angina pectoris; Z95.1 Presence of aortocoronary bypass graft; E78.5 Hyperlipidemia, unspecified; Z85.46 Personal history of malignant neoplasm of prostate; E55.9 Vitamin D deficiency, unspecified; M85.80 Other specified disorders of bone density and structure, unspecified site; E03.9 Hypothyroidism, unspecified; I73.9 Peripheral vascular disease, unspecified; N18.3 Chronic kidney disease, stage 3 (moderate); I50.22 Chronic systolic (congestive) heart failure; I13.0 Hypertensive heart and chronic kidney disease with heart failure and stage 1 through stage 4 chronic kidney disease, or unspecified chronic kidney disease; R11.2 Nausea with vomiting, unspecified; K21.9 Gastro-esophageal reflux disease without esophagitis; G89.29 Other chronic pain; N40.0 Benign prostatic hyperplasia without lower urinary tract symptoms; Z92.3 Personal history of irradiation; G40.909 Epilepsy, unspecified, not intractable, without status epilepticus; Z79.899 Other long term (current) drug therapy; Z79.82 Long term (current) use of aspirin; Z88.8 Allergy status to other drugs, medicaments and biological substances; Z20.828 Contact with and (suspected) exposure to other viral communicable diseases
CPT/HCPCS: 36415; 71045; 74018; 80048; 80076; 81001; 82550; 82553; 83735; 84443; 84484; 85025; 85027; 85610; 85730; 86850; 86900; 86901; 87040; 87486; 87507; 87581; 87633; 87641; 87798; 93005; 93041; 94760; 96365; 96366; 96367; 96368; 96372; 96375; 97161; 97530; 99285; G0378; J1644; J2405; J2543; J3370; U0002

== ENCOUNTER → 2020-04-04 | Outpatient (REF) | payer MEDICARE, MEDICAID ==
[~2020-04-04] MED LIST changes: +SENN-52 PO; +VITAD1000T PO
[2020-04-04 18:33] LABS: HEMATOCRIT 34.8 % (42.0-52.0); HEMOGLOBIN 11.6 g/dl (13.5-17.5); MEAN CORPUSCULAR HEMOGLOBIN 33.8 pg (27.0-33.0); MEAN CORPUSCULAR HGB CONC 33.3 g/dl (32.0-36.5); MEAN CORPUSCULAR VOLUME 101.5 fl (80.0-96.0); PLATELET COUNT, AUTOMATED 245 10^3/uL (150-450); RED BLOOD COUNT 3.43 10^6/uL (4.30-6.10); WHITE BLOOD COUNT 7.6 10^3/uL (4.0-10.0)
[2020-04-04 18:34] LABS: CALCIUM LEVEL 8.7 MG/DL (8.8-10.2); CREATININE FOR GFR 1.42 MG/DL (0.70-1.30); GLOMERULAR FILTRATION RATE 50.4 (>35); POTASSIUM SERUM 4.1 MEQ/L (3.5-5.1)
== END ==
LOC: M SFHCADAM 15:09
PROVIDERS: ATTEND Family Medicine
DX: R55 Syncope and collapse (principal); N17.9 Acute kidney failure, unspecified

== ENCOUNTER → 2020-12-31 | Outpatient (REF) | payer MEDICARE, MEDICAID ==
[~2020-12-31] MED LIST changes: +D31000TA2 PO; -VITAD1000T PO
[2020-12-31 13:25] LABS: HEMATOCRIT 36.4 % (42.0-52.0); HEMOGLOBIN 11.8 g/dl (13.5-17.5); MEAN CORPUSCULAR HEMOGLOBIN 32.8 pg (27.0-33.0); MEAN CORPUSCULAR HGB CONC 32.4 g/dl (32.0-36.5); MEAN CORPUSCULAR VOLUME 101.1 fl (80.0-96.0); PLATELET COUNT, AUTOMATED 248 10^3/uL (150-450)
[2020-12-31 13:58] LABS: ALBUMIN 3.7 GM/DL (3.2-5.2); BILIRUBIN,TOTAL 0.4 MG/DL (0.2-1.0); CALCIUM LEVEL 8.8 MG/DL (8.8-10.2); CHOLESTEROL RISK RATIO 3.688 (<5); CREATININE FOR GFR 1.51 MG/DL (0.70-1.30); FREE T4 0.78 NG/DL (0.76-1.46); GLOMERULAR FILTRATION RATE 46.9 (>35); POTASSIUM SERUM 4.6 MEQ/L (3.5-5.1); THYROID STIMULATING HORMONE 4.25 uIU/ML (0.358-3.740)
[2020-12-31 17:28] LABS: HEMOGLOBIN A1c 7.3 %
== END ==
LOC: M SFHCADAM 08:34
PROVIDERS: ATTEND Family Medicine
DX: N18.30 Chronic kidney disease, stage 3 unspecified (principal); E08.51 Diabetes mellitus due to underlying condition with diabetic peripheral angiopathy without gangrene; E03.9 Hypothyroidism, unspecified; I25.10 Atherosclerotic heart disease of native coronary artery without angina pectoris

== ENCOUNTER 2021-04-29 12:48 | Emergency (ER) | payer MEDICARE, MEDICAID ==
[~2021-04-29] VITALS: Ht 180.3 cm; Wt 77.6 kg
[2021-04-29] MEDS ORDERED: ASPI81TA26 PO (12:57)
--- NOTE | 2021-04-29 13:19 | REP ---
INDICATION: FALL/TRAUMA COMPARISON: 12/23/2019 TECHNIQUE: Axial noncontrast images from the skull base to the thoracic inlet with coronal reformations. This CT examination was performed using the following dose reduction techniques: Automated exposure control, adjustment of mA and/or kv according to the patient's size, and use of iterative reconstruction technique. FINDINGS: Atrophy with periventricular leukomalacia and microvascular ischemic changes are appreciated. The ventricles and sulci are symmetric. Rm-white differentiation is maintained. There is no evidence for acute intracranial hemorrhage, mass/mass effect, pathology or infarction. No extra-axial fluid collection. Calvarium is intact. Paranasal sinuses and mastoid air cells are clear. IMPRESSION: Atrophy and microvascular ischemic changes. No acute intracranial hemorrhage, infarction, or mass/mass effect. <Electronically signed by Jarett Mejía > 04/29/21 [id number]
--- NOTE | 2021-04-29 13:22 | REP ---
INDICATION: FALL/TRAUMA COMPARISON: None. TECHNIQUE: Axial noncontrast images from the skull base to the thoracic inlet with coronal and sagittal re-formations This CT examination was performed using the following dose reduction techniques: Automated exposure control, adjustment of mA and/or kv according to the patient's size, and use of iterative reconstruction technique. FINDINGS: Advanced osteopenia and multilevel degenerative disc osteophyte complexes are appreciated the extending from C1-2 through C6-7. Spinal canal appears patent. No acute fracture/compression injury or subluxation. Paravertebral soft tissues are within normal limits. Incidental prior left hemithyroidectomy. IMPRESSION: Advanced multilevel degenerative spondylosis. No evidence for acute fracture/compression injury or subluxation. <Electronically signed by Jarett Mejía > 04/29/21 [id number]
--- NOTE | 2021-04-29 13:25 | REP ---
INDICATION: FALL/TRAUMA COMPARISON: None. TECHNIQUE: Axial noncontrast images through the facial bones to include the mandible with coronal and sagittal re-formations. FINDINGS: The osseous structures are intact and there is no evidence for fracture or dislocation. Specifically, the bilateral zygomatic arches, nasal bones, and mandible including bilateral temporomandibular joints appear normal and symmetric. The sinuses and mastoid air cells are within normal limits and without fluid level to suggest occult trauma. The bilateral orbits including the globes and intraconal contents appear symmetric and normal. The surrounding soft tissues are grossly unremarkable. IMPRESSION: Normal maxillofacial CT. No evidence for acute pathology or trauma/injury. <Electronically signed by Jarett Mejía > 04/29/21 [id number]
[2021-04-29] MEDS ORDERED: LIDOCAINE 1% MDV 20ML VIAL INFIL ONE (13:55)
[2021-04-29] MEDS ORDERED: AUGMENTIN 875 MG TAB PO ONE (14:55)
[2021-04-29] MEDS ORDERED: BOOSTRIX/ADACEL VACCINE (DIPHTH/PERTUSS/ACELL/TETANUS) 0.5ML SYR IM ONE (14:55)
[2021-04-29] MEDS ORDERED: AUGM875T28 PO (15:09)
[2021-04-29 15:14] VITALS: BP 160/76
== END 2021-04-29 15:31 | disposition home or self-care (01) ==
LOC: M ED 12:48
DX: S01.511A Laceration without foreign body of lip, initial encounter (principal); S00.83XA Contusion of other part of head, initial encounter; W18.39XA Other fall on same level, initial encounter; Y92.018 Other place in single-family (private) house as the place of occurrence of the external cause; M47.892 Other spondylosis, cervical region; I10 Essential (primary) hypertension; E11.9 Type 2 diabetes mellitus without complications; K21.9 Gastro-esophageal reflux disease without esophagitis; N40.0 Benign prostatic hyperplasia without lower urinary tract symptoms; G62.9 Polyneuropathy, unspecified; I95.1 Orthostatic hypotension; Z79.899 Other long term (current) drug therapy; Z79.82 Long term (current) use of aspirin; Z79.4 Long term (current) use of insulin; Z88.8 Allergy status to other drugs, medicaments and biological substances

== ENCOUNTER → 2021-07-31 | Outpatient (REF) | payer MEDICARE, MEDICAID ==
[~2021-07-31] MED LIST changes: +ASPI81TA26 PO; +AUGM875T28 PO
[2021-07-31 15:17] LABS: HEMATOCRIT 34.8 % (42.0-52.0); HEMOGLOBIN 11.8 g/dl (13.5-17.5); MEAN CORPUSCULAR HEMOGLOBIN 33.9 pg (27.0-33.0); MEAN CORPUSCULAR HGB CONC 33.9 g/dl (32.0-36.5); PLATELET COUNT, AUTOMATED 236 10^3/uL (150-450); RED BLOOD COUNT 3.48 10^6/uL (4.30-6.10)
[2021-07-31 15:52] LABS: CALCIUM LEVEL 8.5 MG/DL (8.8-10.2); CREATININE FOR GFR 1.44 MG/DL (0.70-1.30); FREE T4 0.73 NG/DL (0.76-1.46); GLOMERULAR FILTRATION RATE 49.4 (>35); POTASSIUM SERUM 4.5 MEQ/L (3.5-5.1); THYROID STIMULATING HORMONE 4.56 uIU/ML (0.358-3.740)
== END ==
LOC: M SFHCADAM 13:42
PROVIDERS: ATTEND Family Medicine
DX: N18.30 Chronic kidney disease, stage 3 unspecified (principal); E03.9 Hypothyroidism, unspecified; E08.51 Diabetes mellitus due to underlying condition with diabetic peripheral angiopathy without gangrene

== ENCOUNTER → 2021-12-17 | Outpatient (REF) | payer MEDICARE, MEDICAID ==
[~2021-12-17] MED LIST changes: +LOSA25TA13 PO; -LOSA25TA14 PO; +LOSA50TA28 PO; -LOSA50TA88 PO
[2021-12-17 16:21] LABS: HEMATOCRIT 33.3 % (42.0-52.0); HEMOGLOBIN 11.2 g/dl (13.5-17.5); MEAN CORPUSCULAR HEMOGLOBIN 33.7 pg (27.0-33.0); MEAN CORPUSCULAR HGB CONC 33.6 g/dl (32.0-36.5); MEAN CORPUSCULAR VOLUME 100.3 fl (80.0-96.0); PLATELET COUNT, AUTOMATED 254 10^3/uL (150-450); RED BLOOD COUNT 3.32 10^6/uL (4.30-6.10); WHITE BLOOD COUNT 8.4 10^3/uL (4.0-10.0)
[2021-12-17 16:55] LABS: ALBUMIN 3.6 GM/DL (3.2-5.2); ALT/SGPT 23 U/L (12-78); BILIRUBIN,TOTAL 0.3 MG/DL (0.2-1.0); BLOOD UREA NITROGEN 39 MG/DL (7-18); CARBON DIOXIDE LEVEL 30 MEQ/L (21-32); CHLORIDE LEVEL 102 MEQ/L (98-107); CREATININE FOR GFR 1.34 MG/DL (0.70-1.30); FOLATE > 24.0 NG/ML (>5.4); FREE T4 1.06 NG/DL (0.76-1.46); GLOMERULAR FILTRATION RATE 53.7 (>35); GLUCOSE, FASTING 179 MG/DL (70-100); POTASSIUM SERUM 3.4 MEQ/L (3.5-5.1); SODIUM LEVEL 142 MEQ/L (136-145); THYROID STIMULATING HORMONE 0.763 uIU/ML (0.358-3.740); TOTAL 25(OH) VITAMIN D 43.5 NG/ML (30.0-100.0); TOTAL PROTEIN 7.1 GM/DL (6.4-8.2); VITAMIN B12 LEVEL 685 PG/ML (247-911)
== END ==
LOC: M SFHCADAM 13:35
PROVIDERS: ATTEND Family Medicine
DX: E03.9 Hypothyroidism, unspecified (principal); R53.83 Other fatigue; N18.30 Chronic kidney disease, stage 3 unspecified; E08.51 Diabetes mellitus due to underlying condition with diabetic peripheral angiopathy without gangrene; F32.A Depression, unspecified; E55.9 Vitamin D deficiency, unspecified

== ENCOUNTER → 2022-05-06 | Outpatient (REF) | payer MEDICARE, MEDICAID ==
[~2022-05-06] MED LIST changes: -D31000TA2 PO; +VITA100093 PO
[2022-05-07 13:14] LABS: HEMOGLOBIN 11.2 g/dl (13.5-17.5); MEAN CORPUSCULAR HEMOGLOBIN 34.4 pg (27.0-33.0); MEAN CORPUSCULAR HGB CONC 32.9 g/dl (32.0-36.5); MEAN CORPUSCULAR VOLUME 104.3 fl (80.0-96.0); PLATELET COUNT, AUTOMATED 238 10^3/uL (150-450); RED BLOOD COUNT 3.26 10^6/uL (4.30-6.10); WHITE BLOOD COUNT 7.3 10^3/uL (4.0-10.0)
[2022-05-07 13:27] LABS: HEMOGLOBIN A1c 7.7 %
[2022-05-07 14:17] LABS: ALBUMIN 3.6 GM/DL (3.2-5.2); ALT/SGPT 22 U/L (12-78); BILIRUBIN,TOTAL 0.3 MG/DL (0.2-1.0); BLOOD UREA NITROGEN 29 MG/DL (7-18); CALCIUM LEVEL 8.3 MG/DL (8.8-10.2); CARBON DIOXIDE LEVEL 30 MEQ/L (21-32); CHLORIDE LEVEL 98 MEQ/L (98-107); CHOLESTEROL LEVEL 209 MG/DL (<200); CHOLESTEROL RISK RATIO 2.488 (<5); CREATININE FOR GFR 1.65 MG/DL (0.70-1.30); FERRITIN 66 NG/ML (26-388); FOLATE > 24.0 NG/ML (>5.4); FREE T4 0.99 NG/DL (0.76-1.46); GLOMERULAR FILTRATION RATE 42.2 (>35); GLUCOSE, FASTING 296 MG/DL (70-100); HDL CHOLESTEROL 84 MG/DL (>40); IRON (FE) 68 UG/DL (65-175); LDL CHOLESTEROL 91 MG/DL (<100); NON-HDL-C 125 MG/DL; PERCENT SATURATION 22.1 % (19.7-50.0); POTASSIUM SERUM 4.3 MEQ/L (3.5-5.1); SODIUM LEVEL 134 MEQ/L (136-145); TOTAL IRON BINDING CAPACITY 308 UG/DL (250-450); TOTAL PROTEIN 6.7 GM/DL (6.4-8.2); TRIGLYCERIDES LEVEL 170 MG/DL (<150); VITAMIN B12 LEVEL 678 PG/ML (247-911)
== END ==
LOC: M SFHCADAM 15:27
PROVIDERS: ATTEND Family Medicine
DX: R20.9 Unspecified disturbances of skin sensation (principal); I50.22 Chronic systolic (congestive) heart failure; D63.1 Anemia in chronic kidney disease; E03.9 Hypothyroidism, unspecified; E08.51 Diabetes mellitus due to underlying condition with diabetic peripheral angiopathy without gangrene; I73.9 Peripheral vascular disease, unspecified

== ENCOUNTER → 2022-07-15 | Outpatient (CLI) | payer MEDICARE, MEDICAID | LOC: M ADAMS 08:55 | PROVIDERS: ATTEND Family Medicine | DX: M54.32 Sciatica, left side (principal); M51.36 Other intervertebral disc degeneration, lumbar region; M51.46 Schmorl's nodes, lumbar region; M16.12 Unilateral primary osteoarthritis, left hip ==

== ENCOUNTER → 2022-08-12 | Outpatient (REF) | payer MEDICARE, MEDICAID ==
[2022-08-12 18:28] LABS: HEMATOCRIT 36.7 % (42.0-52.0); MEAN CORPUSCULAR HGB CONC 32.7 g/dl (32.0-36.5); PLATELET COUNT, AUTOMATED 259 10^3/uL (150-450); RED BLOOD COUNT 3.53 10^6/uL (4.30-6.10)
[2022-08-12 19:02] LABS: ALBUMIN 3.9 GM/DL (3.2-5.2); BILIRUBIN,TOTAL 0.2 MG/DL (0.2-1.0); CALCIUM LEVEL 8.8 MG/DL (8.8-10.2); CHOLESTEROL RISK RATIO 2.465 (<5); CREATININE FOR GFR 1.45 MG/DL (0.70-1.30); GLOMERULAR FILTRATION RATE 48.9 (>35); POTASSIUM SERUM 4.5 MEQ/L (3.5-5.1); THYROID STIMULATING HORMONE 0.316 uIU/ML (0.358-3.740); TOTAL PROTEIN 7.1 GM/DL (6.4-8.2)
[2022-08-12 19:24] LABS: HEMOGLOBIN A1c 7.8 %
== END ==
LOC: M SFHCADAM 13:37
PROVIDERS: ATTEND Family Medicine
DX: N18.30 Chronic kidney disease, stage 3 unspecified (principal); D63.1 Anemia in chronic kidney disease; R55 Syncope and collapse; E08.51 Diabetes mellitus due to underlying condition with diabetic peripheral angiopathy without gangrene; E03.9 Hypothyroidism, unspecified

== ENCOUNTER → 2022-10-02 | Outpatient (CLI) | payer MEDICARE, MEDICAID ==
[~2022-10-02] MED LIST changes: -CILO100T PO; +CILO100T3 PO
== END ==
LOC: M PAIN 08:45
PROVIDERS: ATTEND Nurse Practitioner Family
DX: M79.18 Myalgia, other site (principal); M51.16 Intervertebral disc disorders with radiculopathy, lumbar region; E11.40 Type 2 diabetes mellitus with diabetic neuropathy, unspecified; I25.10 Atherosclerotic heart disease of native coronary artery without angina pectoris; E78.5 Hyperlipidemia, unspecified; Z85.46 Personal history of malignant neoplasm of prostate; N40.0 Benign prostatic hyperplasia without lower urinary tract symptoms; E55.9 Vitamin D deficiency, unspecified; M85.80 Other specified disorders of bone density and structure, unspecified site; E03.9 Hypothyroidism, unspecified; E11.51 Type 2 diabetes mellitus with diabetic peripheral angiopathy without gangrene; L82.1 Other seborrheic keratosis; N18.30 Chronic kidney disease, stage 3 unspecified; E11.22 Type 2 diabetes mellitus with diabetic chronic kidney disease; I50.22 Chronic systolic (congestive) heart failure; M15.0 Primary generalized (osteo)arthritis; M48.061 Spinal stenosis, lumbar region without neurogenic claudication; Z87.891 Personal history of nicotine dependence; Z79.82 Long term (current) use of aspirin; Z79.4 Long term (current) use of insulin; Z79.890 Hormone replacement therapy; Z79.899 Other long term (current) drug therapy; Z88.8 Allergy status to other drugs, medicaments and biological substances

== ENCOUNTER → 2022-11-07 | Outpatient (CLI) | payer MEDICARE, MEDICAID | LOC: M PAIN 08:45 | PROVIDERS: ATTEND Nurse Practitioner Family | DX: M79.10 Myalgia, unspecified site (principal); G89.29 Other chronic pain; E11.40 Type 2 diabetes mellitus with diabetic neuropathy, unspecified; E03.9 Hypothyroidism, unspecified; Z87.891 Personal history of nicotine dependence; Z88.8 Allergy status to other drugs, medicaments and biological substances; Z79.4 Long term (current) use of insulin; Z79.82 Long term (current) use of aspirin; Z79.899 Other long term (current) drug therapy ==

== ENCOUNTER → 2022-12-03 | Outpatient (REF) | payer MEDICARE, MEDICAID ==
[2022-12-03 17:31] LABS: HEMOGLOBIN 11.6 g/dl (13.5-17.5); MEAN CORPUSCULAR HEMOGLOBIN 34.7 pg (27.0-33.0); MEAN CORPUSCULAR HGB CONC 33.1 g/dl (32.0-36.5); MEAN CORPUSCULAR VOLUME 104.8 fl (80.0-96.0); PLATELET COUNT, AUTOMATED 266 10^3/uL (150-450); RED BLOOD COUNT 3.34 10^6/uL (4.30-6.10); WHITE BLOOD COUNT 6.6 10^3/uL (4.0-10.0)
[2022-12-03 17:56] LABS: ALBUMIN 3.8 G/DL (3.2-5.2); BILIRUBIN,TOTAL 0.4 MG/DL (0.3-1.2); CALCIUM LEVEL 8.7 MG/DL (8.3-10.6); CHOLESTEROL RISK RATIO 2.41 (<5); CREATININE FOR GFR 1.33 MG/DL (0.70-1.30); HDL CHOLESTEROL 72.8 MG/DL (>40); LDL CHOLESTEROL 72.4 MG/DL (<100); POTASSIUM SERUM 4.4 MMOL/L (3.5-5.1); THYROID STIMULATING HORMONE 0.561 uIU/ML (0.55-4.78); TOTAL PROTEIN 6.8 G/DL (5.7-8.2)
[2022-12-03 17:57] LABS: FREE T4 1.19 NG/DL (0.89-1.76)
== END ==
LOC: M SFHCADAM 12:01
PROVIDERS: ATTEND Family Medicine
DX: I25.10 Atherosclerotic heart disease of native coronary artery without angina pectoris (principal); E08.51 Diabetes mellitus due to underlying condition with diabetic peripheral angiopathy without gangrene; N18.30 Chronic kidney disease, stage 3 unspecified; E03.9 Hypothyroidism, unspecified; I73.9 Peripheral vascular disease, unspecified

== ENCOUNTER → 2023-10-02 | Outpatient (REF) | payer MEDICARE, MEDICAID ==
[2023-10-02 17:29] LABS: HEMATOCRIT 36.4 % (42.0-52.0); HEMOGLOBIN 12.1 g/dl (13.5-17.5); MEAN CORPUSCULAR HEMOGLOBIN 34.1 pg (27.0-33.0); MEAN CORPUSCULAR HGB CONC 33.2 g/dl (32.0-36.5); MEAN CORPUSCULAR VOLUME 102.5 fl (80.0-96.0); PLATELET COUNT, AUTOMATED 252 10^3/uL (150-450); RED BLOOD COUNT 3.55 10^6/uL (4.30-6.10); WHITE BLOOD COUNT 9.2 10^3/uL (4.0-10.0)
[2023-10-02 17:49] LABS: HEMOGLOBIN A1c 7.3 % (4.0-6.0)
[2023-10-02 18:05] LABS: ALBUMIN 3.8 G/DL (3.2-5.2); BILIRUBIN,TOTAL 0.2 MG/DL (0.3-1.2); CALCIUM LEVEL 8.9 MG/DL (8.3-10.6); CHOLESTEROL RISK RATIO 2.61 (<5); CREATININE FOR GFR 1.3 MG/DL (0.70-1.30); FREE T4 0.92 NG/DL (0.89-1.76); GLOMERULAR FILTRATION RATE 55.3 (>35); HDL CHOLESTEROL 79.6 MG/DL (>40); LDL CHOLESTEROL 91.4 MG/DL (<100); NON-HDL-C 128.4 MG/DL; POTASSIUM SERUM 4.6 MMOL/L (3.5-5.1); THYROID STIMULATING HORMONE 1.606 uIU/ML (0.55-4.78); TOTAL PROTEIN 6.9 G/DL (5.7-8.2)
== END ==
LOC: M SFHCADAM 14:20
PROVIDERS: ATTEND Family Medicine
DX: I25.10 Atherosclerotic heart disease of native coronary artery without angina pectoris (principal); E08.51 Diabetes mellitus due to underlying condition with diabetic peripheral angiopathy without gangrene; I10 Essential (primary) hypertension; E03.9 Hypothyroidism, unspecified; E78.2 Mixed hyperlipidemia

== ENCOUNTER → 2024-04-15 | Outpatient (REF) | payer MEDICARE, MEDICAID ==
[~2024-04-15] MED LIST changes: +CARB-115 PO; -CARB200T98 PO
[2024-04-15 17:59] LABS: HEMATOCRIT 38.1 % (42.0-52.0); HEMOGLOBIN 12.5 g/dl (13.5-17.5); MEAN CORPUSCULAR HEMOGLOBIN 33.6 pg (27.0-33.0); MEAN CORPUSCULAR HGB CONC 32.8 g/dl (32.0-36.5); MEAN CORPUSCULAR VOLUME 102.4 fl (80.0-96.0); PLATELET COUNT, AUTOMATED 260 10^3/uL (150-450); RED BLOOD COUNT 3.72 10^6/uL (4.30-6.10); WHITE BLOOD COUNT 7.9 10^3/uL (4.0-10.0)
[2024-04-15 18:06] LABS: ALBUMIN 3.8 G/DL (3.2-5.2); BILIRUBIN,TOTAL 0.3 MG/DL (0.3-1.2); CALCIUM LEVEL 9.2 MG/DL (8.3-10.6); CHOLESTEROL RISK RATIO 2.59 (<5); CREATININE FOR GFR 1.3 MG/DL (0.70-1.30); GLOMERULAR FILTRATION RATE 55.3 (>35); LDL CHOLESTEROL 101.2 MG/DL (<100); POTASSIUM SERUM 4.1 MMOL/L (3.5-5.1); TOTAL PROTEIN 6.8 G/DL (5.7-8.2)
[2024-04-15 18:07] LABS: FREE T4 1.14 NG/DL (0.89-1.76)
[2024-04-15 18:08] LABS: THYROID STIMULATING HORMONE 1.409 uIU/ML (0.55-4.78)
[2024-04-15 18:12] LABS: HEMOGLOBIN A1c 8.5 % (4.0-6.0)
== END ==
LOC: M SFHCADAM 13:57
PROVIDERS: ATTEND Family Medicine
DX: I25.10 Atherosclerotic heart disease of native coronary artery without angina pectoris (principal); I50.22 Chronic systolic (congestive) heart failure; E03.9 Hypothyroidism, unspecified; E78.2 Mixed hyperlipidemia; E08.51 Diabetes mellitus due to underlying condition with diabetic peripheral angiopathy without gangrene